=== PATIENT | female | born 1935 | race Caucasian/White ===

== ENCOUNTER 2022-08-09 22:37 | Inpatient (IN) | payer MEDICARE, OTHER ==
[~2022-08-09] VITALS: Ht 167.6 cm; Wt 75.3 kg
--- NOTE | 2022-08-09 22:50 | NUR ---
JV FOR POSSIBLE ALOC DUE TO LANGUAGE BARRIER ON SCENE PT UNABLE TO SPECIFY ANY SPECIFIC COMPLAINTS ON ASSESSMENT. CALLED MARISOL PATTON AT FOR FURTHER ELABORATION. SHE ENDORSED HER MOTHER RETURNED FROM REHAB X6 DAYS AGO AND HAS BEEN CONSTIPATED SINCE HER RETURN IN ADDITION TO C/O ABD PAIN. THEY DENY ANY NEW ONSET AMS.PT AWAKE AND ALERT X2 BREATHING EVEN AND UNLABORED. ALL V/S WNL.
[2022-08-09] MEDS ORDERED: IV NS 0.9% 1,000 ML BAG IV ONE (23:00)
[2022-08-09 23:52] LABS: BASOPHILS % (AUTO) 0.3 % (0.0-2.0); HEMATOCRIT 41 % (33-45); HEMOGLOBIN 13.1 g/dL (11.5-14.8); LYMPHOCYTES # (AUTO) 1.6 K/uL (0.8-4.8); LYMPHOCYTES % (AUTO) 10.1 % (20.0-44.0); MEAN CORPUSCULAR HGB CONC 32 g/dl (31.0-36.0); MEAN CORPUSCULAR VOLUME 89 fL (82-100); MONOCYTES # (AUTO) 0.7 K/uL (0.1-1.30); MONOCYTES % (AUTO) 4.7 % (2.0-12.0); NEUTROPHILS # (AUTO) 13.5 K/uL (1.8-8.9); NEUTROPHILS % (AUTO) 84.9 % (43.0-81.0); PLATELET COUNT (AUTO) 316 K/uL (150-450); RED BLOOD CELL COUNT(AUTO) 4.61 MIL/uL (4.0-5.2); WHITE BLOOD COUNT (AUTO) 15.9 K/uL (4.3-11.0)
[2022-08-10 00:02] LABS: CALCIUM, SERUM 8.2 mg/dL (8.5-10.1); CARBON DIOXIDE 22 mmol/L (21-32); CHLORIDE 101 mmol/L (98-107); CREATININE 0.8 mg/dL (0.6-1.3); GLUCOSE 157 mg/dL (74-106); POTASSIUM 5.3 mmol/L (3.5-5.1); SODIUM SERUM 134 mmol/L (136-145); UREA NITROGEN, BLOOD 15 mg/dL (7-18)
[2022-08-10 00:18] LABS: ALANINE AMINOTRANSFERASE 9 U/L (12-78); ALKALINE PHOSPHATASE 83 U/L (46-116); ASPARTATE AMINOTRANSFERASE 43 U/L (15-37); BILIRUBIN,DIRECT 0.5 mg/dL (0.0-0.2); BILIRUBIN,TOTAL 1.7 mg/dL (0.2-1.0); TOTAL PROTEIN, SERUM 7.5 g/dL (6.4-8.2)
[2022-08-10] MEDS ORDERED: PIPERACILLIN /TAZOBACTAM 3.375 G in IV D5W 50 ML IV ONE (00:30)
[2022-08-10] MEDS ORDERED: PIPERACILLIN /TAZOBACTAM 3.375 G VIAL IV ONE (00:40)
[2022-08-10] MEDS ORDERED: IV NS 0.9% 1,000 ML BAG IV ONE (01:00)
--- NOTE | 2022-08-10 01:11 | NUR ---
angelita collected and sent to lab
--- NOTE | 2022-08-10 01:12 | NUR ---
us at bedside
--- NOTE | 2022-08-10 01:27 | NUR ---
urine collected and sent to lab
[2022-08-10] MEDS ORDERED: ACETAMINOPHEN 325 MG TABLET PO PRN (01:30)
[2022-08-10] MEDS ORDERED: ONDANSETRON HCL/PF 4 MG/2 ML VIAL IVP PRN (01:30)
[2022-08-10] MEDS ORDERED: hydrALAZINE HCL IV 20 MG VIAL IV PRN (01:30)
--- NOTE | 2022-08-10 02:01 | NUR ---
PT REFUSING FOR LA REPEAT LAB DRAW
[2022-08-10 02:22] LABS: BILIRUBIN,URINE MODERATE (NEGATIVE); COLOR,URINE DARK YELLOW (YELLOW); LEUKOCYTE ESTERASE ,URINE NEGATIVE (NEGATIVE); NITRITE, URINE POSITIVE (NEGATIVE); PH,URINE 5.5 (5.0-8.0); PROTEIN,URINE TRACE mg/dl (NEGATIVE); UGLUCOSE 100 MG/DL mg/dL (NEGATIVE)
--- NOTE | 2022-08-10 02:46 | NUR ---
Guerrero cabezas in [facility] - 08/10/22 at 0247 by DOUGIE [id number]
[2022-08-10] MEDS ORDERED: ENOXAPARIN SODIUM 40 MG/0.4 ML DISP.SYRIN SQ SCH (03:18)
--- NOTE | 2022-08-10 03:20 | NUR ---
REPORT GIVEN TO ASHLEY TAYLOR FOR LIANNA
[2022-08-10] MEDS ORDERED: CEFEPIME 2 GM in IV D5W 100 ML IV ONE (03:30)
--- NOTE | 2022-08-10 03:31 | NUR ---
PT TRANSPORTED TO UNIT ON GURNEY WITH EMT AND RN AT BEDSIDE. NAD NOTED DURING TRANSPORTED
--- NOTE | 2022-08-10 04:00 | NUR ---
BEEF PLUCK TRIMMER NOTES: RECEIVED PATIENT AWAKE IN BED, BED FROM ER, BED IN LOW POSITION, CALL LIGHTS WITHIN REACH, NO COMPLAIN OF PAIN AND DISCOMFORT AT THIS TIME, NO FACIAL GRIMACING, PATIENT WAS PLACED COMFORTABLY IN ROOM A/OX2 WITH EPISODE OF CONFUSION, IB LINE AT LEFT HAND WITH ONGOING NSS@75ML/HR INFUSING WELL, SKIN ASSESSMENT DONE AND DOCUMENTED, INVENTORIES OF PERSONAL BELONGING DONE AND SIGNED BY ME AND SOLE CONFORMING MACHINE OPERATOR PATIENT WAS UNABLE TO SIGN, PATIENT WAS ORIENTED TO PLACE REMIND TO USE THE CALL LIGHTS WHEN NEEDED ASSISTANCE, PATIENT BED WAS PLACED IN LOW POSITION CALL LIGHTS WITHIN REACH, ALL NEEDS MET WILL CONTINUE TO MONITOR.
[2022-08-10 04:30] VITALS: BP 109/54
[2022-08-10] MEDS ORDERED: CEFEPIME 1 GM VIAL ONE ×2 (04:40→05:26)
[2022-08-10] MEDS: IV NS 0.9% 1,000 ML IV SCH ×2 (04:42→15:51)
--- NOTE | 2022-08-10 05:44 | NUR ---
RN NOTES: PATIENT WAS OBSERVED WITH STAIN OF BLOOD IN BOWEL MOVEMENT WHEN PATIENT CHANGE DURING ADMISSION NOTIFY HOSPITALIST DR EVY ALMENDAREZ PATIENT HAS AN ORDER OF LOVENOX 40MG Q24H PER HOSPITALITIST SAY TO GIVE LOVENOX NOTED AND CARRY OUT.
--- NOTE | 2022-08-10 06:13 | NUR ---
MS RN CLOSING NOTES; PATIENT SLEEP IN BED COMFORTABLY, BE DIN LOW POSITION CALL LIGHTS WITHIN REACH, NO COMPLAIN OF PAIN AND DISCOMFORT AT THIS TIME, ON ROOM AIR SATURATING WELL, PATIENT ON NPO WITH POSSIBLE HIDA SCAN, WITH IV LINE AT LEFT HAND #22 WITH ONGOING [id number] INFUSING WELL, PATIENT KEPT CLEAN AND DRY ALL NEEDS MET ENDORSE TO INCOMING SHIFT.
[2022-08-10 08:24] LABS: RBC,URINE NONE SEEN /HPF (0-2); WBC,URINE 0-2 /HPF (0-3)
[2022-08-10 08:25] LABS: BACTERIA,URINE None seen /HPF (None Seen); MUCUS,URINE Few /LPF (None Seen); SQUAMOUS EPITHELIAL CELL,UR Few /HPF (None Seen)
[2022-08-10] MEDS ORDERED: NORT25CA PO (09:10)
[2022-08-10] MEDS ORDERED: LISI2.5T2 PO (09:10)
[2022-08-10] MEDS ORDERED: DONE10TA44 PO (09:10)
[2022-08-10] MEDS ORDERED: SERT50TA12 PO (09:10)
[2022-08-10] MEDS ORDERED: ROSU5TAB13 PO (09:10)
[2022-08-10] MEDS ORDERED: ACET1TAB23 PO (09:10)
[2022-08-10] MEDS ORDERED: PREG50CA PO (09:10)
--- NOTE | 2022-08-10 10:39 | NUR ---
WOUND CARE CONSULT: PT OFF UNIT AT THIS TIME. PER NURSING REPORT, PT HAS DRY BLACK NECROTIC TISSUE TO LEFT HEEL, PRESENT ON ADMISSION. RECOMMEND DPM CONSULT. DR RIGGS CALLED. RECOMMENDATIONS MADE FOR SKIN PROTECTION. DISCUSSED WITH NURSING STAFF. WILL SEE PT PT CONDITION PERMITS. MD IN AGREEMENT WITH PLAN OF CARE.
[2022-08-10] MEDS ORDERED: Z GUARD REMEDY 4 OZ OINT TP PRN (11:00)
[2022-08-10] MEDS: CEFEPIME 2 GM in IV D5W 100 ML IV SCH (15:51)
[2022-08-10] MEDS: MORPHINE SULFATE INJ 2 MG/ML DISP.SYRIN IV PRN (17:18)
[2022-08-10] MEDS: NORTRIPTYLINE HCL 25 MG CAPSULE PO SCH (18:04)
--- NOTE | 2022-08-10 18:36 | NUR ---
RN CLOSING NOTE PATIENT RECEIVED IN BED AND ASLEEP. NO S/SX OF DISTRESS. IV ACCESS TO L-HAND IN TACT AND PATENT. NS RUNNING CONTINUOUSLY @ 75ML/HR. PATIENT ALSO RECEIVED IV ANTIBIOTICS ON SHIFT. TOLERATED BOTH WELL. PATIENT TAKEN OFF UNIT @ 0930 FOR SCHEDULED HIDA SCAN. RETURNED BACK @ 1430. PLEASE SEE NOTES FOR RESULTS. PATIENT NIECE, POOJA, NOTIFIED OF PATIENT STATUS. PATIENT RECEIVED PRN MORPHINE VIA IV @ 1718 FOR CONSTANT MOANING AND FACIAL GRIMACING DURING LAST ROUNDING AND CLEANING. MEDICATION EFFECTIVE. SAFETY MEASURES IN PLACE WITH BED LOW AND LOCKED. CALL LIGHT WITHIN REACH. WILL CONT TO MONITOR.
--- NOTE | 2022-08-10 19:54 | NUR ---
MS RN OPENING NOTE RECEIVED PATIENT ASLEEP IN BED, EASILY AWAKENED, ALERT/ORIENTED X 2, PT SPEAKS LITTLE TURKISH. PATIENT STABLE ON RA, NO S/S OF DISTRESS OR SOB NOTED, BREATHING EVEN AND UNLABORED. IV ACCESS ON LEFT HAND #22G AND LFA #22G INTACT, LEFT FOREARM INFUSING NS @ 75 ML/HR. PATIENT RESTING COMFORTABLY, NO S/S OF PAIN NOTED. SAFETY MEASURES IN PLACE, CALL LIGHT WITHIN REACH, SIDE RAILS UP X 3, BED LOCKED IN LOWEST POSITION, BED ALARM ON. WILL CONTINUE TO MONITOR PATIENT
[2022-08-10 20:00] VITALS: BP 100/50
[2022-08-10] MEDS: ATORVASTATIN 10 MG TABLET PO SCH (21:07)
[2022-08-11] MEDS: CEFEPIME 2 GM in IV D5W 100 ML IV SCH ×2 (03:01→15:41)
--- NOTE | 2022-08-11 06:18 | NUR ---
MS RN CLOSING NOTE PATIENT AWAKE IN BED, ALERT/ORIENTED X 1-2, PT LETHARGIC MOST OF SHIFT, PT UNDERSTANDS VERY LITTLE [place]ER[place] LEONEAN. PATIENT STABLE ON RA, NO S/S OF DISTRESS OR SOB NOTED, BREATHING EVEN AND UNLABORED. PATIENT NPO, PER DR. JUAREZ NOTES HIDA SCAN NEGATIVE AND MAY START DIET. ATTEMPTED SWALLOW EVAL, HOWEVER, PT LETHARGIC SO UNABLE TO START DIET, KEPT NPO. PATIENT INCONTINENT, HAD 1 BM. SAFETY MEASURES IN PLACE: CALL LIGHT WITHIN REACH, SIDE RAILS UP X 3, BED LOCKED IN LOWEST POSITION, BED ALARM ON, FLOATED HEELS AND WOUND CARE DONE ON LEFT HEEL, PT TURNED Q2H, MEPILEX PLACED ON SACRUM. WILL ENDORSE TO DAYSHIFT NURSE FOR CONTINUITY OF CARE
[2022-08-11 07:34] LABS: BASOPHILS % (AUTO) 0.5 % (0.0-2.0); EOSINOPHILS % (AUTO) 0.7 % (0.0-6.0); HEMATOCRIT 38 % (33-45); HEMOGLOBIN 12.5 g/dL (11.5-14.8); LYMPHOCYTES # (AUTO) 1.6 K/uL (0.8-4.8); LYMPHOCYTES % (AUTO) 16.1 % (20.0-44.0); MEAN CORPUSCULAR HGB CONC 33 g/dl (31.0-36.0); MEAN CORPUSCULAR VOLUME 89 fL (82-100); MONOCYTES # (AUTO) 0.6 K/uL (0.1-1.30); MONOCYTES % (AUTO) 5.7 % (2.0-12.0); NEUTROPHILS # (AUTO) 7.8 K/uL (1.8-8.9); PLATELET COUNT (AUTO) 310 K/uL (150-450); RED BLOOD CELL COUNT(AUTO) 4.32 MIL/uL (4.0-5.2); WHITE BLOOD COUNT (AUTO) 10.2 K/uL (4.3-11.0)
--- NOTE | 2022-08-11 07:40 | NUR ---
RN OPENING NOTE PATIENT AWAKE IN BED RESTING. A/O X1-2. NO S/S OF PAIN NOTED AT THIS TIME. ON ROOM AIR, NO DISTRESS OR SHORTNESS OF BREATH NOTED. IV ACCESS LFA #22G INTACT, PATENT AND FLUSHING WELL. FALL AND SAFETY MEASURES IN PLACE, BED ALARM ON, BED IN LOW AND LOCK POSITION, CALL LIGHT AND TABLE WITHIN EASY REACH, SIDE RAILS UP X2. WILL CONTINUE TO MONITOR.
[2022-08-11 08:00] VITALS: BP 113/63
[2022-08-11 08:44] LABS: ALBUMIN 1.9 g/dL (3.4-5.0); BILIRUBIN,DIRECT 0.6 mg/dL (0.0-0.2); BILIRUBIN,TOTAL 1.1 mg/dL (0.2-1.0); CALCIUM, SERUM 8.3 mg/dL (8.5-10.1); CREATININE 0.6 mg/dL (0.6-1.3); MAGNESIUM 2.2 mg/dL (1.8-2.4); PHOSPHORUS 2.2 mg/dL (2.5-4.9); TOTAL PROTEIN, SERUM 6.6 g/dL (6.4-8.2)
[2022-08-11] MEDS: MORPHINE SULFATE INJ 2 MG/ML DISP.SYRIN IV PRN (08:49)
[2022-08-11] MEDS: SERTRALINE HCL 50 MG TABLET PO SCH (09:11)
[2022-08-11] MEDS: PREGABALIN 25 MG CAPSULE PO SCH ×2 (09:11→17:48)
[2022-08-11] MEDS: LISINOPRIL (5MG) 5 MG TABLET PO SCH (09:11)
[2022-08-11] MEDS: ENOXAPARIN SODIUM 40 MG/0.4 ML DISP.SYRIN SQ SCH (09:13)
[2022-08-11] MEDS: VITAMINS A AND D 56.7 GM TUBE TP SCH (09:15)
[2022-08-11] MEDS: POTASSIUM CHLORIDE 20 MEQ POWDER PACKET PO SCH ×3 (12:04→14:22)
[2022-08-11] MEDS ORDERED: NEUTRA PHOS 1 POWD.PACKET PO ONE (14:00)
[2022-08-11 16:00] VITALS: BP 120/59
[2022-08-11] MEDS: NORTRIPTYLINE HCL 25 MG CAPSULE PO SCH (17:48)
--- NOTE | 2022-08-11 19:21 | NUR ---
RN CLOSING NOTE PATIENT AWAKE IN BED RESTING. A/O X1-2. NO S/S OF PAIN NOTED AT THIS TIME. ON ROOM AIR, NO DISTRESS OR SHORTNESS OF BREATH NOTED. NO IV ACCESS, PATIENT REMOVED IV, MULTIPLE ATTEMPTS WERE MADE. SCHEDULE MEDICATIONS ADMINISTERED. FALL AND SAFETY MEASURES IN PLACE, BED ALARM ON, BED IN LOW AND LOCK POSITION, CALL LIGHT AND TABLE WITHIN EASY REACH, SIDE RAILS UP X2. WILL ENDORSE TO RESEARCH PROFESSOR OF BIOSTATISTICS.
--- NOTE | 2022-08-11 19:40 | NUR ---
MS RN OPENING NOTE RECEIVED PATIENT AWAKE IN BED, EASILY AWAKENED, ALERT/ORIENTED X 1-2, PT SPEAKS LITTLE MOHAWK, PATIENT MORE ALERT TODAY. PATIENT STABLE ON RA, NO S/S OF DISTRESS OR SOB NOTED, BREATHING EVEN AND UNLABORED. NO IV ACCESS AT THIS TIME, MULTIPLE ATTEMPTS BY DAYSHIFT NURSE, WILL ATTEMPT IV ACCESS LATER. PATIENT RESTING COMFORTABLY, DENIES PAIN AT THIS TIME. SAFETY MEASURES IN PLACE, CALL LIGHT WITHIN REACH, SIDE RAILS UP X 3, BED LOCKED IN LOWEST POSITION, BED ALARM ON. WILL CONTINUE TO MONITOR PATIENT
[2022-08-11 20:00] VITALS: BP 91/57
[2022-08-11] MEDS: DONEPEZIL 5 MG TABLET PO SCH (22:13)
[2022-08-11] MEDS: ATORVASTATIN 10 MG TABLET PO SCH (22:13)
[2022-08-12] MEDS: CEFEPIME 2 GM in IV D5W 100 ML IV SCH ×2 (02:51→15:20)
--- NOTE | 2022-08-12 06:50 | NUR ---
MS RN CLOSING NOTE PATIENT AWAKE IN BED, ALERT/ORIENTED X 1-2, PT SPEAKS LITTLE TURKS AND [place] ISLANDER, PATIENT MORE ALERT THIS SHIFT. PATIENT STABLE ON RA, NO S/S OF DISTRESS OR SOB NOTED, BREATHING EVEN AND UNLABORED. MEDICATIONS GIVEN ORDERED, PT NEEDS MET THROUGHOUT SHIFT. IV ACCESS INSERTED ON LEFT WRIST #22G, INTACT AND SALINE LOCKED. SAFETY MEASURES IN PLACE, CALL LIGHT WITHIN REACH, SIDE RAILS UP X 3, BED LOCKED IN LOWEST POSITION, BED ALARM ON. WILL ENDORSE TO DAYSHIFT NURSE FOR CONTINUITY OF CARE
[2022-08-12 07:14] LABS: BASOPHILS # (AUTO) 0.1 K/uL (0.0-0.2); BASOPHILS % (AUTO) 0.6 % (0.0-2.0); EOSINOPHILS % (AUTO) 1.4 % (0.0-6.0); HEMATOCRIT 36 % (33-45); HEMOGLOBIN 11.7 g/dL (11.5-14.8); LYMPHOCYTES # (AUTO) 1.5 K/uL (0.8-4.8); LYMPHOCYTES % (AUTO) 14.3 % (20.0-44.0); MEAN CORPUSCULAR HGB CONC 32 g/dl (31.0-36.0); MEAN CORPUSCULAR VOLUME 89 fL (82-100); MONOCYTES # (AUTO) 0.7 K/uL (0.1-1.30); NEUTROPHILS # (AUTO) 7.9 K/uL (1.8-8.9); NEUTROPHILS % (AUTO) 76.7 % (43.0-81.0); PLATELET COUNT (AUTO) 351 K/uL (150-450); RED BLOOD CELL COUNT(AUTO) 4.06 MIL/uL (4.0-5.2); WHITE BLOOD COUNT (AUTO) 10.4 K/uL (4.3-11.0)
--- NOTE | 2022-08-12 07:27 | NUR ---
RN OPENING NOTE PATIENT AWAKE IN BED RESTING. A/O X1-2. NO S/S OF PAIN NOTED AT THIS TIME. ON ROOM AIR, NO DISTRESS OR SHORTNESS OF BREATH NOTED. IV ACCESS L WRIST #22G INTACT, PATENT AND FLUSHING WELL. FALL AND SAFETY MEASURES IN PLACE, BED ALARM ON, BED IN LOW AND LOCK POSITION, CALL LIGHT AND TABLE WITHIN EASY REACH, SIDE RAILS UP X2. WILL CONTINUE TO MONITOR.
[2022-08-12 08:21] LABS: CALCIUM, SERUM 8.4 mg/dL (8.5-10.1); CARBON DIOXIDE 21 mmol/L (21-32); CHLORIDE 101 mmol/L (98-107); CREATININE 0.5 mg/dL (0.6-1.3); GLUCOSE 93 mg/dL (74-106); MAGNESIUM 2.1 mg/dL (1.8-2.4); PHOSPHORUS 2.1 mg/dL (2.5-4.9); POTASSIUM 3.5 mmol/L (3.5-5.1); SODIUM SERUM 133 mmol/L (136-145); UREA NITROGEN, BLOOD 17 mg/dL (7-18)
[2022-08-12 08:29] VITALS: BP 99/52
[2022-08-12] MEDS: SERTRALINE HCL 50 MG TABLET PO SCH (08:35)
[2022-08-12] MEDS: PREGABALIN 25 MG CAPSULE PO SCH ×2 (08:35→17:17)
[2022-08-12] MEDS: LISINOPRIL (5MG) 5 MG TABLET PO SCH (08:35)
[2022-08-12] MEDS: ENOXAPARIN SODIUM 40 MG/0.4 ML DISP.SYRIN SQ SCH (08:36)
[2022-08-12] MEDS: VITAMINS A AND D 56.7 GM TUBE TP SCH (08:37)
[2022-08-12] MEDS ORDERED: NEUTRA PHOS 1 POWD.PACKET PO ONE (11:00)
--- NOTE | 2022-08-12 14:49 | NUR ---
RN NOTE PATIENT'S FAMILY REQUESTED FOR PATIENT TO HAVE MEDICATION FOR CONSTIPATION. DOCTOR JESUS JUAREZ WAS INFORMED AND ORDER COLACE PO 100MG DAILY, ORDER WAS PLACED.
[2022-08-12 16:39] VITALS: BP 90/44
[2022-08-12] MEDS: NORTRIPTYLINE HCL 25 MG CAPSULE PO SCH (17:18)
[2022-08-12 18:23] VITALS: BP 94/60
--- NOTE | 2022-08-12 18:35 | NUR ---
RN CLOSING NOTE PATIENT AWAKE IN BED RESTING. A/O X1-2. NO S/S OF PAIN NOTED AT THIS TIME. ON ROOM AIR, NO DISTRESS OR SHORTNESS OF BREATH NOTED. IV ACCESS L WRIST #22G INTACT, PATENT AND FLUSHING WELL. SCHEDULE MEDICATIONS ADMINISTERED. WOUND CARE IMPLEMENTED. PATIENT WAS TURNED AND REPOSITIONED PER PROTOCOL. FALL AND SAFETY MEASURES IN PLACE, BED ALARM ON, BED IN LOW AND LOCK POSITION, CALL LIGHT AND TABLE WITHIN EASY REACH, SIDE RAILS UP X2. WILL ENDORSE TO BRONZER.
--- NOTE | 2022-08-12 19:40 | NUR ---
MS RN OPENING NOTE RECEIVED PATIENT AWAKE IN BED, ALERT/ORIENTED X 2, PT SPEAKS LITTLE WELSH, PATIENT STABLE ON RA, NO S/S OF DISTRESS OR SOB NOTED, BREATHING EVEN AND UNLABORED. IV ACCESS AT L WRIST #22G INTACT, PATENT, AND FLUSHES WELL, PATIENT DENIES PAIN AT THIS TIME. SAFETY MEASURES IN PLACE, CALL LIGHT WITHIN REACH, SIDE RAILS UP X 3, BED LOCKED IN LOWEST POSITION, BED ALARM ON. WILL CONTINUE TO MONITOR THROUGHOUT THE SHIFT.
[2022-08-12 20:00] VITALS: BP 90/53
[2022-08-12] MEDS: ATORVASTATIN 10 MG TABLET PO SCH (21:11)
[2022-08-12] MEDS: DONEPEZIL 5 MG TABLET PO SCH (21:11)
[2022-08-13] MEDS: CEFEPIME 2 GM in IV D5W 100 ML IV SCH ×2 (02:17→14:40)
--- NOTE | 2022-08-13 06:24 | NUR ---
MS RN CLOSING NOTE NO SIGNIFICANT CHANGES THROUGHOUT THE SHIFT. PATIENT SLEEPING IN BED BUT EASILY AROUSABLE TO TOUCH AND VOICE, ALERT/ORIENTED X 1-2, PT SPEAKS LITTLE MONEGASQUE, PATIENT STABLE ON RA, NO S/S OF DISTRESS OR SOB NOTED, BREATHING EVEN AND UNLABORED. IV ACCESS AT L WRIST #22G INTACT AND PATENT RUNNING NS AT TKO, PATIENT DENIES PAIN AT THIS TIME. ALL DUE MEDS GIVEN, PICTURES TAKEN AND PLACED ON CHART, KEPT DRY AND CLEAN AT ALL TIMES, SAFETY MEASURES IN PLACE, CALL LIGHT WITHIN REACH, SIDE RAILS UP X 3, BED LOCKED IN LOWEST POSITION, BED ALARM ON. WILL ENDORSE TO AM SHIFT NURSE FOR CONTINUITY OF CARE.
[2022-08-13 07:14] LABS: BASOPHILS % (AUTO) 0.3 % (0.0-2.0); EOSINOPHILS % (AUTO) 0.7 % (0.0-6.0); HEMATOCRIT 36 % (33-45); HEMOGLOBIN 11.7 g/dL (11.5-14.8); LYMPHOCYTES # (AUTO) 1.6 K/uL (0.8-4.8); LYMPHOCYTES % (AUTO) 15.5 % (20.0-44.0); MEAN CORPUSCULAR HGB CONC 33 g/dl (31.0-36.0); MEAN CORPUSCULAR VOLUME 90 fL (82-100); MONOCYTES # (AUTO) 0.7 K/uL (0.1-1.30); NEUTROPHILS # (AUTO) 8.1 K/uL (1.8-8.9); NEUTROPHILS % (AUTO) 76.5 % (43.0-81.0); PLATELET COUNT (AUTO) 338 K/uL (150-450); RED BLOOD CELL COUNT(AUTO) 4.02 MIL/uL (4.0-5.2); WHITE BLOOD COUNT (AUTO) 10.6 K/uL (4.3-11.0)
[2022-08-13 07:25] LABS: CALCIUM, SERUM 7.8 mg/dL (8.5-10.1); CREATININE 0.6 mg/dL (0.6-1.3); MAGNESIUM 1.9 mg/dL (1.8-2.4); PHOSPHORUS 2.4 mg/dL (2.5-4.9); POTASSIUM 3.5 mmol/L (3.5-5.1)
--- NOTE | 2022-08-13 07:26 | NUR ---
MS RN OPENING NOTE RECEIVED PATIENT AWAKE IN BED IN NO ACUTE SIGNS OF DISTRESS. HOB ELEVATED. A/O X 2. CANADIAN SPEAKING AND SPEAKS LITTLE SINHALA, DENIES PAIN OR ANY DISCOMFORTS AT THIS TIME. ON RA, BREATHING EVEN AND UNLABORED. IV ACCESS ON L WRIST #22G INTACT, PATENT, AND FLUSHES WELL. SAFETY MEASURES IN PLACE: CALL LIGHT WITHIN REACH, SIDE RAILS UP X 3, BED LOCKED IN LOWEST POSITION, BED ALARM ON. WILL CONTINUE TO MONITOR PT ACCORDINGLY.
[2022-08-13 08:00] VITALS: BP 96/50
[2022-08-13] MEDS: DOCUSATE SODIUM 100 MG CAPSULE PO SCH (08:13)
[2022-08-13] MEDS: PREGABALIN 25 MG CAPSULE PO SCH ×2 (08:13→17:04)
[2022-08-13] MEDS: SERTRALINE HCL 50 MG TABLET PO SCH (08:13)
[2022-08-13] MEDS: ENOXAPARIN SODIUM 40 MG/0.4 ML DISP.SYRIN SQ SCH (08:13)
[2022-08-13] MEDS: LISINOPRIL (5MG) 5 MG TABLET PO SCH (08:14)
[2022-08-13] MEDS: VITAMINS A AND D 56.7 GM TUBE TP SCH (08:15)
--- NOTE | 2022-08-13 11:00 | NUR ---
RN NOTES PT REFUSED PHYSICAL EVALUATION THIS MORNING DESPITE ENCOURAGEMENT.
--- NOTE | 2022-08-13 11:15 | NUR ---
WOUND CARE CONSULT: PT SEEN FOR SKIN ASSESSMENT AND NOTED TO SACRAL INTACT DEEP TISSUE INJURY WITH SURROUNDING SCARRING, PRESENT ON ADMISSION. PT BEING FOLLOWED BY LEFT HEEL WOUND BY PODIATRY. DEFER TO DP FOR HEEL. DISCUSSED SKIN PROTECTION WITH NURSING STAFF. PT IS INCONTINENT. IN AGREEMENT WITH PLAN OF CARE. Addendum: 08/13/22 at 1117 by HELENE VALLE WNDNU Amended: Links added.
[2022-08-13] MEDS ORDERED: NEUTRA PHOS 1 POWD.PACKET PO ONE (12:00)
[2022-08-13 16:00] VITALS: BP 100/50
[2022-08-13] MEDS: NORTRIPTYLINE HCL 25 MG CAPSULE PO SCH (17:04)
[2022-08-13] MEDS: ENSURE ENLIVE 237 ML LIQUID (VANILLA) PO SCH (17:05)
[2022-08-13] MEDS ORDERED: IV NS 0.9% 500 ML BAG IV ONE (18:30)
--- NOTE | 2022-08-13 18:31 | NUR ---
RN NOTES EMT'S FROM [facility] CAME TO PICK-UP PT BUT PT'S BP WAS LOW 75/40MMHG, REPEATED SEVERAL TIMES AND SBP STILL ON THE 70'S. DR JUAREZ MADE AWARE WITH ORDER TO CANCELL D/C ORDER AND ADMINISTER NS 500ML BULOS.
--- NOTE | 2022-08-13 19:00 | NUR ---
MS RN CLOSING NOTE PATIENT IN BED ASLEEP AT THIS TIME, EASILY AWAKENS TO TACTILE AND VERBAL STIMULI. HOB ELEVATED. A/O X 2. JORDANIAN SPEAKING AND SPEAKS LITTLE KINYARWANDA.ON RA, BREATHING EVEN AND UNLABORED. IV ACCESS ON L WRIST #22G INTACT, PATENT, AND FLUSHES WELL. SAFETY MEASURES IN PLACE: CALL LIGHT WITHIN REACH, SIDE RAILS UP X 3, BED LOCKED IN LOWEST POSITION, BED ALARM ON. LATEST BP WAS 96/39 MMHG. ENDORSED TO SUPERVISOR PHOTOCOMPOSITION ASHLEY ROBERTS.
--- NOTE | 2022-08-13 19:20 | NUR ---
MS RN OPENING NOTE RECEIVED PATIENT RESTING IN BED, NO S/S OF ACUTE DISTRESS SEEN. PT A/O X 2, FRISIAN SPEAKING. NO PAIN OR ANY DISCOMFORT NOTED AT THIS TIME. ON ROOM AIR, WITH RESPIRATION EVEN AND UNLABORED. IV ACCESS ON LEFT WRIST #22G INTACT, PATENT. SAFETY MEASURES IN PLACE: CALL LIGHT WITHIN REACH, SIDE RAILS UP X 3, BED LOCKED IN LOWEST POSITION, BED ALARM ON. WILL CONTINUE TO MONITOR PATIENT.
[2022-08-13 20:35] VITALS: BP 90/45
--- NOTE | 2022-08-13 20:39 | NUR ---
MS RN NOTE PER AM SHIFT, D/C CANCELLED D/T LOW BP. 500 CC BOLUS GIVEN PRIOR TO CHANGE OF SHIFT. CURRENT BP 90/45. CHARGE NURSE AND MD MADE AWARE; AWAITING MD ORDERS;
--- NOTE | 2022-08-13 20:44 | NUR ---
MS RN NOTE PER MD, 75CC/HR OF NS; ORDERS RECEIVED AND CARRIED OUT;
[2022-08-13] MEDS ORDERED: IV NS 0.9% 1,000 ML IV ONE (21:00)
[2022-08-13] MEDS: DONEPEZIL 5 MG TABLET PO SCH (21:24)
[2022-08-13] MEDS: ATORVASTATIN 10 MG TABLET PO SCH (21:24)
--- NOTE | 2022-08-13 21:38 | NUR ---
MS RN NOTE PATIENT IS CONFUSED, PULLED OUT IV SITE; L WRIST #22G, IV TIP INTACT; CHARGE NURSE AWARE; MADE AWARE; PER ZACK GORDON FOR ACUTE MEDICAL RESTRAINTS, CHARGE NURSE INFORMED; ORDERS RECEIVED AND CARRIED OUT
[2022-08-14] VITALS (19 sets, daily range): BP systolic 74–167; BP diastolic 28–87
[2022-08-14] MEDS: CEFEPIME 2 GM in IV D5W 100 ML IV SCH ×2 (03:25→15:38)
--- NOTE | 2022-08-14 06:48 | NUR ---
MS RN CLOSING NOTE PATIENT IN BED ASLEEP AT THIS TIME, EASILY AWAKENS TO TACTILE AND VERBAL STIMULI. HOB ELEVATED. A/O X 2. SOUTH AFRICAN SPEAKING MOSTLY. ON RA. BREATHING EVEN AND UNLABORED. IV ACCESS TO RIGHT WRIST #20 G INTACT, PATENT, AND FLUSHES WELL. MEDS ADMINISTERED IN TIMELY MANNER. SAFETY MEASURES IN PLACE: CALL LIGHT WITHIN REACH, SIDE RAILS UP X 3, BED LOCKED IN LOWEST POSITION, BED ALARM ON. WILL ENDORSE PATIENT'S CARE TO HEALTH CARE SANITARY TECHNICIAN NURSE.
--- NOTE | 2022-08-14 07:30 | NUR ---
RN MS NOTES PT IN BED, AWAKE, ALERT AND VERBALLY RESPONSIVE, LOOKS WEAK, NO COMPLAINT OF PAIN, NOT IN DISTRESS, IV FLUIDS INFUSING WELL,KEPT COMFORTABLE.
[2022-08-14] MEDS: DOCUSATE SODIUM 100 MG CAPSULE PO SCH (09:00)
[2022-08-14] MEDS: LISINOPRIL (5MG) 5 MG TABLET PO SCH (09:00)
[2022-08-14] MEDS ORDERED: IV NS 0.9% 500 ML BAG IV ONE (10:00)
[2022-08-14] MEDS ORDERED: NEUTRA PHOS 1 POWD.PACKET PO ONE (10:00)
[2022-08-14] MEDS: SERTRALINE HCL 50 MG TABLET PO SCH (10:08)
[2022-08-14] MEDS: PREGABALIN 25 MG CAPSULE PO SCH ×2 (10:08→17:21)
[2022-08-14] MEDS: ENSURE ENLIVE 237 ML LIQUID (VANILLA) PO SCH ×2 (10:15→16:44)
[2022-08-14] MEDS: ENOXAPARIN SODIUM 40 MG/0.4 ML DISP.SYRIN SQ SCH (10:22)
[2022-08-14] MEDS ORDERED: IV NS 0.9% 1,000 ML IV ONE ×2 (12:00→16:00)
[2022-08-14 12:22] LABS: BILIRUBIN,URINE SMALL (NEGATIVE); COLOR,URINE AMBER (YELLOW); LEUKOCYTE ESTERASE ,URINE NEGATIVE (NEGATIVE); NITRITE, URINE NEGATIVE (NEGATIVE); PROTEIN,URINE TRACE mg/dl (NEGATIVE); UGLUCOSE NEGATIVE (NEGATIVE)
[2022-08-14 13:10] LABS: BACTERIA,URINE Few /HPF (None Seen); RBC,URINE 0-2 /HPF (0-2); SQUAMOUS EPITHELIAL CELL,UR Few /HPF (None Seen); WBC,URINE 0-2 /HPF (0-3)
[2022-08-14] MEDS: VITAMINS A AND D 56.7 GM TUBE TP SCH (13:48)
[2022-08-14 15:02] LABS: BASOPHILS % (AUTO) 0.4 % (0.0-2.0); HEMATOCRIT 34 % (33-45); HEMOGLOBIN 10.8 g/dL (11.5-14.8); LYMPHOCYTES # (AUTO) 1.6 K/uL (0.8-4.8); LYMPHOCYTES % (AUTO) 15.4 % (20.0-44.0); MEAN CORPUSCULAR HGB CONC 32 g/dl (31.0-36.0); MEAN CORPUSCULAR VOLUME 90 fL (82-100); MONOCYTES # (AUTO) 0.6 K/uL (0.1-1.30); MONOCYTES % (AUTO) 5.7 % (2.0-12.0); NEUTROPHILS # (AUTO) 8.2 K/uL (1.8-8.9); NEUTROPHILS % (AUTO) 77.5 % (43.0-81.0); PLATELET COUNT (AUTO) 200 K/uL (150-450); RED BLOOD CELL COUNT(AUTO) 3.75 MIL/uL (4.0-5.2); WHITE BLOOD COUNT (AUTO) 10.6 K/uL (4.3-11.0)
[2022-08-14 16:09] LABS: ALANINE AMINOTRANSFERASE 11 U/L (12-78); ALKALINE PHOSPHATASE 114 U/L (46-116); ASPARTATE AMINOTRANSFERASE 25 U/L (15-37); BILIRUBIN,DIRECT 0.7 mg/dL (0.0-0.2); CALCIUM, SERUM 7.7 mg/dL (8.5-10.1); CARBON DIOXIDE 20 mmol/L (21-32); CHLORIDE 102 mmol/L (98-107); CREATININE 0.5 mg/dL (0.6-1.3); GLUCOSE 87 mg/dL (74-106); POTASSIUM 3.7 mmol/L (3.5-5.1); SODIUM SERUM 133 mmol/L (136-145); TOTAL PROTEIN, SERUM 5.6 g/dL (6.4-8.2); UREA NITROGEN, BLOOD 20 mg/dL (7-18)
--- NOTE | 2022-08-14 16:13 | NUR ---
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 home with caregiver and home health
[2022-08-14 16:14] LABS: ALBUMIN 1.4 g/dL (3.4-5.0)
--- NOTE | 2022-08-14 16:39 | NUR ---
VP BUSINESS DEVELOPMENT NOTES PT SEEN AND EXAMINED BY DR. LEE, AWAITING ORDERS.
[2022-08-14] MEDS ORDERED: MIDODRINE HCL (5MG) 5 MG TABLET PO PRN (17:00)
[2022-08-14] MEDS ORDERED: ALBUMIN 25% 12.5 GM/50 ML BOTTLE IV ONE (17:00)
[2022-08-14] MEDS: NORTRIPTYLINE HCL 25 MG CAPSULE PO SCH (17:22)
[2022-08-14] MEDS: IV NS 0.9% 1,000 ML IV PRN (17:26)
[2022-08-14] MEDS ORDERED: ALBUMIN 25% 25 GM in PREMIX 1 EA IV ONE (17:30)
--- NOTE | 2022-08-14 19:00 | NUR ---
TAR WORKER NOTES PT IN BED, RESTING, NO COMPLAINT OF PAIN, NOT IN DISTRESS, ALERT AND VERBALLY RESPONSIVE, WITH ONGOING IV BOLUS, COMPLETED ALBUMIN INFUSION ORDERED, LATEST BP 91/55, WITH HR OF 100, REMAIN SR ON THE MONITOR, PM CARE PROVIDED, F/C DRAINING WELL WITH TEA COLORED URINE, NO HEMATURIA NOTED, KEPT RIM TECHNICIAN BED.
[2022-08-14] MEDS: ATORVASTATIN 10 MG TABLET PO SCH (22:20)
--- NOTE | 2022-08-14 23:16 | NUR ---
AUTOMOTIVE COLLISION ESTIMATOR OPENING NOTE RECEIVED PATIENT RESTING IN BED, NO S/S OF ACUTE DISTRESS SEEN. PT A/O X 2. NO PAIN OR ANY DISCOMFORT NOTED AT THIS TIME. ON ROOM AIR, WITH RESPIRATION EVEN AND UNLABORED. IV ACCESSES ON LEFT HAND, AND LEFT FA #20G INTACT, PATENT. PT ON TELE MONITOR SINUS RHYTHM WITH PVC, AND SINUS TACHY HR: 125. SAFETY MEASURES IN PLACE: CALL LIGHT WITHIN REACH, SIDE RAILS UP X 3, BED LOCKED IN LOWEST POSITION, BED ALARM ON. WILL CONTINUE TO MONITOR PATIENT. Addendum: 08/14/22 at 2334 by EVY HARRELL RN WRONG TIME ENTERED. CORRECT TIME IS 1939.
[2022-08-15] VITALS (15 sets, daily range): BP systolic 87–116; BP diastolic 36–78
--- NOTE | 2022-08-15 00:38 | NUR ---
MS RAMIREZ NOTES PATIENT BP 87/43, PATIENT HAS MIDODRINE TID/PRN <90 SYSTOLIC. MIDODRINE ADMINISTERED PER ORDER; CHARGE NURSE MADE AWARE; WILL RE-ASSESS BP; PATIENT ALSO RECEIVING 100CC/HR OF NORMAL SALINE FOR FLUID HYDRATION; WILL CONT PLAN OF CARE Addendum: 08/15/22 at 0203 by SPIKE SAMPSON RN PATIENT IS TELEMETRY MONITORING
--- NOTE | 2022-08-15 02:01 | NUR ---
JAVA TECHNICAL ARCHITECT NOTE CURRENT BP: 73/40 HR: 94; CHARGE NURSE AND MD MADE AWARE; PER MD, INCREASE MIDODRINE TO 10MG PO Q8HRS PRN; ORDERS RECEIVED AND CARRIED OUT;
[2022-08-15] MEDS: CEFEPIME 2 GM in IV D5W 100 ML IV SCH ×2 (02:11→14:59)
[2022-08-15] MEDS: MIDODRINE HCL (5MG) 5 MG TABLET PO PRN ×2 (02:16→13:26)
--- NOTE | 2022-08-15 02:35 | NUR ---
CUT OFF SAW TENDER METAL NOTE 10MG MIDODRINE PO ADMINISTERED PER MD ORDER; PATIENT PLACED IN [place] POSITION; CHARGE NURSE AWARE; WILL CONT PLAN OF CARE; WILL RE-ASSESS BLOOD PRESSURE
--- NOTE | 2022-08-15 03:24 | NUR ---
POINT OF CARE TECHNICIAN NOTE UPDATED MD REGARDING PATIENT BLOOD PRESSURE, PER MD ORDER ALBUMIN 25% 25GM X2 AND BOLUS 1L NS AFTER ADMINISTRATION OF ALBUMIN ORDER; CMP SCHEDULED FOR AM. CHARGE NURSE AWARE; FAXED ORDER TO NURSING SURGICAL INSTRUMENTS INSPECTOR, AWAITING FOR PHARMACY TO VERIFY MEDICATION;
[2022-08-15] MEDS ORDERED: ALBUMIN 25% 25 GM in PREMIX 1 EA IV ONE (03:30)
[2022-08-15] MEDS ORDERED: ALBUMIN 25% 100 ML IV ONE (03:47)
[2022-08-15] MEDS ORDERED: IV NS 0.9% 1,000 ML IV ONE (06:00)
--- NOTE | 2022-08-15 06:17 | NUR ---
SALES REP NOTE PATIENT BP 88/47 AFTER 2 DOSES OF ALBUMIN AND 1L NS BOLUS; MD MADE AWARE; CHARGE AWARE; AWAITING MD ORDERS
[2022-08-15 06:23] LABS: BASOPHILS % (AUTO) 0.4 % (0.0-2.0); EOSINOPHILS % (AUTO) 1.9 % (0.0-6.0); HEMATOCRIT 29 % (33-45); HEMOGLOBIN 9.3 g/dL (11.5-14.8); LYMPHOCYTES # (AUTO) 1.3 K/uL (0.8-4.8); LYMPHOCYTES % (AUTO) 20.2 % (20.0-44.0); MEAN CORPUSCULAR HGB CONC 32 g/dl (31.0-36.0); MEAN CORPUSCULAR VOLUME 91 fL (82-100); MONOCYTES # (AUTO) 0.7 K/uL (0.1-1.30); MONOCYTES % (AUTO) 10.7 % (2.0-12.0); NEUTROPHILS # (AUTO) 4.2 K/uL (1.8-8.9); NEUTROPHILS % (AUTO) 66.8 % (43.0-81.0); PLATELET COUNT (AUTO) 278 K/uL (150-450); RED BLOOD CELL COUNT(AUTO) 3.17 MIL/uL (4.0-5.2); WHITE BLOOD COUNT (AUTO) 6.2 K/uL (4.3-11.0)
--- NOTE | 2022-08-15 06:44 | NUR ---
CUSTOMER SERVICE ENGINEER NOTE PER MD, TRANSFER TO ICU, CHARGE NURSE AND MORGUE LIBRARIAN AWARE;
--- NOTE | 2022-08-15 07:00 | NUR ---
STAMP PAD MAKER NOTE PATIENT TRANSFERRED TO ICU ROOM 254 PER ACLS PROTOCOL; REPORT GIVEN TO DOUG RN AND MARTHA RN FOR LIANNA
[2022-08-15 07:11] LABS: CALCIUM, SERUM 7.4 mg/dL (8.5-10.1); CARBON DIOXIDE 21 mmol/L (21-32); CHLORIDE 107 mmol/L (98-107); CREATININE 0.5 mg/dL (0.6-1.3); GLUCOSE 105 mg/dL (74-106); MAGNESIUM 1.6 mg/dL (1.8-2.4); SODIUM SERUM 136 mmol/L (136-145); UREA NITROGEN, BLOOD 13 mg/dL (7-18)
--- NOTE | 2022-08-15 07:44 | NUR ---
WOUND CARE CONSULT: PT SEEN FOR RE-EVALUATION OF SACRAL DEEP TISSUE INJURY WHICH IS NOW IN EVOLUTION AND WAS NOTED TO BE PRESENT ON ADMISSION. PT CONTINUES TO HAVE LEFT HEEL ESCHAR, PRESENT ON ADMISSION. PT FOLLOWED BY DR RIGGS. FIRST STEP LOW AIRSS MATTRESS IS ON ORDER, DISCUSSED SKIN PROTECTION AND WOUND CARE RECOMMENDATIONS WITH NURSING STAFF. DR MCMULLEN CALLED FOR SURGICAL CONSULT. MD IN AGREEMENT WITH PLAN OF CARE. Addendum: 08/15/22 at 0747 by HELENE VALLE WNDNU Amended: Links added.
[2022-08-15] MEDS: DOCUSATE SODIUM 100 MG CAPSULE PO SCH (08:14)
[2022-08-15] MEDS: PREGABALIN 25 MG CAPSULE PO SCH ×2 (08:14→16:05)
[2022-08-15] MEDS: SERTRALINE HCL 50 MG TABLET PO SCH (08:14)
[2022-08-15] MEDS: LISINOPRIL (5MG) 5 MG TABLET PO SCH (08:14)
[2022-08-15] MEDS: VITAMINS A AND D 56.7 GM TUBE TP SCH (08:15)
[2022-08-15] MEDS: ENSURE ENLIVE 237 ML LIQUID (VANILLA) PO SCH ×2 (08:15→16:05)
[2022-08-15] MEDS: ENOXAPARIN SODIUM 40 MG/0.4 ML DISP.SYRIN SQ SCH (08:23)
[2022-08-15] MEDS: IV NS 0.9% 1,000 ML IV PRN ×2 (08:54→22:21)
[2022-08-15] MEDS: POTASSIUM CHLORIDE 20 MEQ POWDER PACKET PO SCH ×3 (10:47→12:32)
[2022-08-15] MEDS: Magnesium 1GM/D5W 100ML PREMIX 100 ML IV SCH ×2 (10:47→12:06)
--- NOTE | 2022-08-15 12:27 | NUR ---
TRANSFER TO AUTO PARTS PROFESSIONAL NOTES PT TRANSFERRED TO ICU FOR LOW BP. UPON ARRIVAL, BP STABLE. ALL VITALS TAKEN SO FAR STABLE AND WNL. PT IS A/O X 1-2 NIGERIAN SPEAKING, UNDERSTANDS SOME BRUNEIAN. PT IS ON RA SATING AT 100%, IV ACCESS NOTED ON LFA 20G, AND LH 20G. IV NS RUNNING AT 100ML/HR. NO PRESSERS STARTED.
[2022-08-15] MEDS ORDERED: NEUTRA PHOS 1 POWD.PACKET PO ONE (12:30)
--- NOTE | 2022-08-15 12:30 | NUR ---
LATEST ORTHOSTATIC BP IS 107/50 Addendum: 08/15/22 at 1352 by MARTHA CASTANEDA RN high fowlers 107/50, supine 107/45 and upright modified 98/40
--- NOTE | 2022-08-15 13:52 | NUR ---
administering 500ml bolus of NS per MD.
--- NOTE | 2022-08-15 16:42 | NUR ---
current bp orthostatic bp's: high fowlers 104/62, supine 104/45, modified upright (S) 104/51
[2022-08-15] MEDS ORDERED: MIDODRINE HCL (5MG) 5 MG TABLET PO SCH (17:00)
[2022-08-15] MEDS: NORTRIPTYLINE HCL 25 MG CAPSULE PO SCH (17:12)
--- NOTE | 2022-08-15 17:20 | NUR ---
Pt stable, latest bp, 100/67 (MAP= 77) ready to transfer to room 310. Report given to Lynne RAMIREZ.
--- NOTE | 2022-08-15 18:00 | NUR ---
transfer notes pt transferred safely and in stable condition to room 310. report given to Lynne RAMIREZ. all meds, charts, and personal belongings sent with pt accordingly.
--- NOTE | 2022-08-15 18:40 | NUR ---
DIE TRIPPER NOTE PATIENT TRANSFERRED FROM ICU DOWNGRADED TO TELE, ARRIVED IN THE UNIT @1800. PATIENT TRANSPORTED VIA BED, ACCOMPANIED BY MARTHA RAMIREZ FROM ICU. PATIENT IS AWAKE, A/O X2, VERBALLY RESPONSIVE, NO SIGNS OF ACUTE DISTRESS NOTED. STABLE ON ROOM AIR, NO SOB NOTED, BREATHING EVEN AND UNLABORED. NOTED WITH IV ACCESS ON LEFT UPPER ARM MIDLINE #18G, INTACT AND PATENT WITH NS @10 ML/HR INFUSING WELL. ALSO NOTED WITH LEFT HAND AND LEFT FORE ARM #20G, INTACT AND PATENT, SALINE LOCKED. PLACED PATIENT ON TELE MONITOR WITH CURRENT READING SHOWING SINUS RHYTHM, HR @ 80. VITAL SIGNS TAKEN FOLLOWS: 98.6, 80, 20, 119/44, SPO2 100% ON ROOM AIR. NO S/SX OF PAIN AT THIS TIME. NOTE WITH EDEMA ON BUE. ALSO WITH BILATERAL SOFT WRIST RESTRAINTS. RESTRAINTS RELEASED AT THIS TIME. PATIENT CALM AND COOPERATIVE. NO EPISODE OF TRYING TO PULL OUT IV LINES. KEPT PATIENT COMFORTABLE, SAFETY MEASURE IN PLACE. BED IN LOWEST AND LOCKED POSITION, SIDE RAILS UP X4, CALL LIGHT PLACED WITHIN EASY REACH. WILL ENDORSE TO NEXT SHIFT FOR CONTINUITY OF CARE.
--- NOTE | 2022-08-15 19:48 | NUR ---
CONTINUITY OF CARE Patient in bed, awake, calm. Arash wrist restraints off, CSM intact on BUE. Sitter at bedside. Patient had BM, incontinent care rendered. Turned and repositioned, offloading. Will cont to monitor.
[2022-08-15] MEDS: MIDODRINE HCL (5MG) 5 MG TABLET PO SCH (22:16)
[2022-08-15] MEDS: ATORVASTATIN 10 MG TABLET PO SCH (22:17)
--- NOTE | 2022-08-15 22:39 | NUR ---
OFF RESTRAINTS Patient in bed, calm. Observed no episode of pulling IV lines. Arash soft wrist restraints discontinued. Sitter at bedside.
[2022-08-16] MEDS: CEFEPIME 2 GM in IV D5W 100 ML IV SCH ×2 (03:11→15:13)
[2022-08-16 04:11] VITALS: BP 95/41
[2022-08-16] MEDS: MIDODRINE HCL (5MG) 5 MG TABLET PO SCH ×3 (05:29→21:40)
--- NOTE | 2022-08-16 06:10 | NUR ---
END OF SHIFT REPORT Patient in bed, awake. Alert to self only. No acute distress during the shift, stable on room air. Sinus Rhythm in the Tele monitor, HR 87. CRIS midline intact with good blood return. IVF infusing. On IV abx. Afebrile throughout shift. Dressing changed to sacral and left heel wound, no c/o pain, offloading. Echeverria catheter with good urine output 450ml. BP in low 90's. On Midodrine. Had BM during the shift. Turned and repositioned. No episode of agitation. Sitter at bedside. Fall precaution maintained. Will endorse to oncoming RN.
[2022-08-16 06:29] LABS: BASOPHILS % (AUTO) 0.6 % (0.0-2.0); EOSINOPHILS % (AUTO) 1.8 % (0.0-6.0); HEMATOCRIT 31 % (33-45); HEMOGLOBIN 10.1 g/dL (11.5-14.8); LYMPHOCYTES % (AUTO) 20.2 % (20.0-44.0); MEAN CORPUSCULAR HGB CONC 33 g/dl (31.0-36.0); MEAN CORPUSCULAR VOLUME 89 fL (82-100); MONOCYTES # (AUTO) 0.5 K/uL (0.1-1.30); MONOCYTES % (AUTO) 9.8 % (2.0-12.0); NEUTROPHILS # (AUTO) 3.3 K/uL (1.8-8.9); NEUTROPHILS % (AUTO) 67.6 % (43.0-81.0); PLATELET COUNT (AUTO) 306 K/uL (150-450); RED BLOOD CELL COUNT(AUTO) 3.48 MIL/uL (4.0-5.2); WHITE BLOOD COUNT (AUTO) 4.9 K/uL (4.3-11.0)
[2022-08-16 07:29] LABS: CALCIUM, SERUM 7.1 mg/dL (8.5-10.1); CARBON DIOXIDE 22 mmol/L (21-32); CHLORIDE 108 mmol/L (98-107); CREATININE 0.5 mg/dL (0.6-1.3); GLUCOSE 90 mg/dL (74-106); MAGNESIUM 1.7 mg/dL (1.8-2.4); PHOSPHORUS 1.5 mg/dL (2.5-4.9); POTASSIUM 3.7 mmol/L (3.5-5.1); SODIUM SERUM 137 mmol/L (136-145); UREA NITROGEN, BLOOD 8 mg/dL (7-18)
--- NOTE | 2022-08-16 07:35 | NUR ---
ms rn received on bed, awake,confuse at times, on one on one sitter for safety and comfort, blood pressure remains on lower side,md aware, asymptomatic, denies pain at this time, will monitor patient.
[2022-08-16 08:00] VITALS: BP 88/44
[2022-08-16] MEDS: DOCUSATE SODIUM 100 MG CAPSULE PO SCH (08:44)
[2022-08-16] MEDS: PREGABALIN 25 MG CAPSULE PO SCH ×2 (08:44→18:20)
[2022-08-16] MEDS: LISINOPRIL (5MG) 5 MG TABLET PO SCH (08:44)
[2022-08-16] MEDS: SERTRALINE HCL 50 MG TABLET PO SCH (08:46)
[2022-08-16] MEDS: ENOXAPARIN SODIUM 40 MG/0.4 ML DISP.SYRIN SQ SCH (08:46)
[2022-08-16] MEDS: ENSURE ENLIVE 237 ML LIQUID (VANILLA) PO SCH ×2 (09:00→17:00)
--- NOTE | 2022-08-16 11:00 | NUR ---
ms rn was seen by toño sesay with orders made and carried out.
[2022-08-16 12:00] VITALS: BP 95/41
[2022-08-16] MEDS ORDERED: NEUTRA PHOS 1 POWD.PACKET PO ONE (13:00)
[2022-08-16] MEDS: Magnesium 1GM/D5W 100ML PREMIX 100 ML IV SCH ×2 (13:40→15:16)
[2022-08-16 18:11] VITALS: BP 122/41
[2022-08-16] MEDS: NORTRIPTYLINE HCL 25 MG CAPSULE PO SCH (18:20)
[2022-08-16] MEDS: VITAMINS A AND D 56.7 GM TUBE TP SCH (18:22)
--- NOTE | 2022-08-16 18:39 | NUR ---
ms rn on bed, no distress noted all needs attended.
--- NOTE | 2022-08-16 19:35 | NUR ---
RN OPENING NOTES; RECEIVED PT IN BED SLEEPING BUT EASY TO AROUSED,CONFUSED,TIEN WELL ON RM AIR NO SIGN SOB/DISTRESS NOTED,NO SIGN OF PAIN/DISCOMFORT AT THIS TIME,IV ACCESS CRIS MIDLINE PATENT AND INTACT,SAFETY MEASURE INPLACE,CALL LIGHT WITHIN REACH,WILL CONTINUE TO MONITOR.
[2022-08-16 20:00] VITALS: BP 104/50
[2022-08-16] MEDS: ATORVASTATIN 10 MG TABLET PO SCH (21:39)
[2022-08-17] VITALS (8 sets, daily range): BP systolic 97–125; BP diastolic 50–64
[2022-08-17] MEDS: CEFEPIME 2 GM in IV D5W 100 ML IV SCH ×2 (03:05→15:00)
[2022-08-17] MEDS: MIDODRINE HCL (5MG) 5 MG TABLET PO SCH ×5 (04:45→21:10)
--- NOTE | 2022-08-17 06:09 | NUR ---
RN CLOSING NOTES; PT IN BED SLEEPING BUT EASY TO AROUSED,CONFUSED,TIEN WELL ON RM AIR NO SIGN SOB/DISTRESS NOTED,NO SIGN OF PAIN/DISCOMFORT AT THIS TIME,DUE MEDS GIVEN ORDER,PT WAS MOVE TO RM 311-1 DUE TO ROOMATE WAS YELLING,SCREAMING MOST OF THE TIME,ALL NEEDS ATTENDED,IV ACCESS RFA 22G PATENT AND INTACT,SAFETY MEASURE INPLACE,CALL LIGHT WITHIN REACH,WILL ENDORSED TO NEXT SHIFT.
[2022-08-17 06:45] LABS: BASOPHILS % (AUTO) 0.6 % (0.0-2.0); EOSINOPHILS % (AUTO) 0.8 % (0.0-6.0); HEMATOCRIT 33 % (33-45); HEMOGLOBIN 10.9 g/dL (11.5-14.8); LYMPHOCYTES # (AUTO) 1.5 K/uL (0.8-4.8); LYMPHOCYTES % (AUTO) 22.5 % (20.0-44.0); MEAN CORPUSCULAR HGB CONC 33 g/dl (31.0-36.0); MEAN CORPUSCULAR VOLUME 88 fL (82-100); MONOCYTES # (AUTO) 0.6 K/uL (0.1-1.30); MONOCYTES % (AUTO) 8.7 % (2.0-12.0); NEUTROPHILS # (AUTO) 4.6 K/uL (1.8-8.9); NEUTROPHILS % (AUTO) 67.4 % (43.0-81.0); PLATELET COUNT (AUTO) 330 K/uL (150-450); RED BLOOD CELL COUNT(AUTO) 3.73 MIL/uL (4.0-5.2); WHITE BLOOD COUNT (AUTO) 6.8 K/uL (4.3-11.0)
[2022-08-17 07:11] LABS: CALCIUM, SERUM 7.4 mg/dL (8.5-10.1); CARBON DIOXIDE 21 mmol/L (21-32); CHLORIDE 104 mmol/L (98-107); CREATININE 0.4 mg/dL (0.6-1.3); GLUCOSE 79 mg/dL (74-106); MAGNESIUM 2.1 mg/dL (1.8-2.4); PHOSPHORUS 1.5 mg/dL (2.5-4.9); POTASSIUM 3.4 mmol/L (3.5-5.1); SODIUM SERUM 134 mmol/L (136-145); UREA NITROGEN, BLOOD 6 mg/dL (7-18)
--- NOTE | 2022-08-17 07:30 | NUR ---
SAP INTEGRATION ARCHITECT NOTES PT IN BED, AWAKE, ALERT TO SELF, VERBALLY RESPONSIVE, NOT IN DISTRESS, CALL LIGHT WITHIN REACH, KEPT WARM AND COMFORTABLE IN BED.
[2022-08-17] MEDS: DOCUSATE SODIUM 100 MG CAPSULE PO SCH (09:58)
[2022-08-17] MEDS: PREGABALIN 25 MG CAPSULE PO SCH ×2 (09:58→17:00)
[2022-08-17] MEDS: SERTRALINE HCL 50 MG TABLET PO SCH (09:58)
[2022-08-17] MEDS: ENSURE ENLIVE 237 ML LIQUID (VANILLA) PO SCH ×2 (09:59→17:00)
[2022-08-17] MEDS ORDERED: NEUTRA PHOS 1 POWD.PACKET PO ONE (10:00)
[2022-08-17] MEDS: ENOXAPARIN SODIUM 40 MG/0.4 ML DISP.SYRIN SQ SCH (10:00)
[2022-08-17] MEDS ORDERED: POTASSIUM CHLORIDE 20 MEQ POWDER PACKET PO SCH (10:00)
[2022-08-17] MEDS: VITAMINS A AND D 56.7 GM TUBE TP SCH (10:01)
--- NOTE | 2022-08-17 11:08 | NUR ---
LANG INTERPRETER NOTES PT SEEN AND EXAMINED BY DR. MERINO, PT REFUSED TO TAKE HER MORNING MEDS, INFORMED, DISCHARGE PLANNING TODAY.
[2022-08-17] MEDS: FLUDROCORTISONE 0.1 MG TABLET PO SCH ×3 (12:00→14:31)
[2022-08-17] MEDS ORDERED: MIDO5TAB4 PO (13:13)
[2022-08-17] MEDS ORDERED: FLUD0.1T3 PO (13:13)
--- NOTE | 2022-08-17 16:13 | NUR ---
ALL AROUND PRESSER NOTES PT REFUSED TO RESTART IV, IV ATB NOT GIVEN, INFORMED OF PT'S MED REFUSALS.
[2022-08-17] MEDS: NORTRIPTYLINE HCL 25 MG CAPSULE PO SCH (17:42)
--- NOTE | 2022-08-17 18:30 | NUR ---
BUILDING APPRAISER NOTES PT IN BED, RESTING, AWAKE, ALERT TO SELF, WITH CONFUSION, NO SIGN OF PAIN, NOT IN DISTRESS, CALL LIGHT WITHIN REACH, F/C IN PLACE, DRAINING WELL WITH CLEAR, YELLOW URINE, PM CARE PROVIDED, NIURKA POOJA REQUESTED TO HOLD DISCHARGE BECAUSE THEY DO NOT HAVE A CAREGIVER AVAILABLE TODAY, DR. MERINO AND CUTTER OPERATOR ASBESTOS SHINGLE AWARE, ALL NEEDS ATTENDED.
--- NOTE | 2022-08-17 19:10 | NUR ---
RN NOTES: RECEIVED ASLEEP ON BED, ON TELE MONITOR SR RATE-93, BORDERLINE IST DEGREE, LOOKS CONFUSED, ORIENTED TO UNIT AND STAFF WHEN SHE WAS AWAKEN, ON DOWNS CATH DRAINING INTO YELLOWISH COLORED URINE AT 100CC LEVEL, ORIENTED TO UNIT AND STAFF, ASPIRATION PRECAUTION, FALL AND SAFETY PRECAUTION OBSERVED.KEPT CALL LIGHT WITHIN EASY REACH.
[2022-08-17] MEDS: ATORVASTATIN 10 MG TABLET PO SCH ×2 (21:11→21:19)
--- NOTE | 2022-08-17 21:17 | NUR ---
RN NOTES: WHEN RN WAS ABOUT TO GIVE MEDICATION AND WAKE HER UP, SHE STRONGLY REFUSED FOR HER ORAL MEDS, SHE SAID "NO.NO NO", SHE IS PUSHING THE RN HAND AWAY AND SHE COVER HER MOUTH AND FACE, SHE SAID "GO, GO", RN EXPLAINED IT TO HER THE RISK AND BENIFITS OF MEDICATION, SHE IS NOT LISTENING.SHE SAID"GO". Addendum: 08/17/22 at 2238 by SKIP TORIBIO RN ADDED NOTES: MEDICATION RETURNED BACK TO OMNICE.
[2022-08-18] VITALS: BP 103/62
[2022-08-18] MEDS: CEFEPIME 2 GM in IV D5W 100 ML IV SCH (03:00)
--- NOTE | 2022-08-18 03:10 | NUR ---
RN NOTES: -UPON ENDORSEMENT THIS AFTERNOON, NO IV CANNULA, REFUSED FOR REINSERTION, PMD IS AWARE. -SHE ALSO REFUSED FOR ORAL MEDICATION.
[2022-08-18 04:00] VITALS: BP 112/62
[2022-08-18] MEDS: MIDODRINE HCL (5MG) 5 MG TABLET PO SCH (05:05)
--- NOTE | 2022-08-18 06:53 | NUR ---
RN NOTES: MORNING CARE RENDERED, BRIEF CHANGE, DRESSING CHANGE, SHE AGREE TO TAKE HER MEDICATION IN THE MORNING, REFUSED TO REINSERT IV CANNULA, FOR POSSIBLE DISCHARGE TODAY, NO PAIN OR DISCOMFORT, BP WITHIN NORMAL RANGE, NO HYPOTENSION NOTED, ENDORSED FOR CONTINUITY OF CARE.
[2022-08-18 08:00] VITALS: BP 123/63
[2022-08-18] MEDS: DOCUSATE SODIUM 100 MG CAPSULE PO SCH (09:01)
[2022-08-18] MEDS: SERTRALINE HCL 50 MG TABLET PO SCH (09:01)
[2022-08-18] MEDS: ENSURE ENLIVE 237 ML LIQUID (VANILLA) PO SCH (09:01)
[2022-08-18] MEDS: FLUDROCORTISONE 0.1 MG TABLET PO SCH (09:01)
[2022-08-18] MEDS: PREGABALIN 25 MG CAPSULE PO SCH (09:01)
[2022-08-18] MEDS: ENOXAPARIN SODIUM 40 MG/0.4 ML DISP.SYRIN SQ SCH (09:09)
[2022-08-18] MEDS: VITAMINS A AND D 56.7 GM TUBE TP SCH (09:27)
[2022-08-18 12:00] VITALS: BP 99/56
[2022-08-18 16:00] VITALS: BP 102/57
--- NOTE | 2022-08-18 16:29 | NUR ---
SHIFT COMMANDER NOTE PATIENT DISCHARGED FROM FACILITY VIA [facility] @ 1625;ACCOMPANIED BY AMBULANCE. TRANSFERRED TO [facility]. NO IV ACCESS. NO BELONGING. REPORT GIVEN TO RECEIVING NURSE, ILEANA. PATIENT POOJA BAH, MADE AWARE OF TRANSFER.
--- NOTE | 2022-08-23 12:42 | NUR ---
MUSHTAQ received call from APS workerNany [phone] requesting patient's discharge location. MUSHTAQ informed Nany that pt. went to [facility]. Per Nany he will follow up with pt. there.
== END 2022-08-18 16:30 | DRG 391 ==
LOC: ER 22:41 → TELE 08-10 03:10 → MED 08-10 03:34 → TELE 08-14 14:11 → ICU 08-15 06:54 → TELE 08-15 17:54
PROVIDERS: ADMIT Student in an Organized Health Care Education/Training Program; ATTEND Student in an Organized Health Care Education/Training Program
DX: K59.00 Constipation, unspecified (principal); E43 Unspecified severe protein-calorie malnutrition; E87.1 Hypo-osmolality and hyponatremia; E27.40 Unspecified adrenocortical insufficiency; G93.40 Encephalopathy, unspecified; E87.20 Acidosis, unspecified; K80.20 Calculus of gallbladder without cholecystitis without obstruction; I10 Essential (primary) hypertension; F03.90 Unspecified dementia, unspecified severity, without behavioral disturbance, psychotic disturbance, mood disturbance, and anxiety; E78.5 Hyperlipidemia, unspecified; E87.6 Hypokalemia; E86.9 Volume depletion, unspecified; E87.5 Hyperkalemia; E88.09 Other disorders of plasma-protein metabolism, not elsewhere classified; K40.90 Unilateral inguinal hernia, without obstruction or gangrene, not specified as recurrent; K82.8 Other specified diseases of gallbladder; L85.3 Xerosis cutis; Z53.20 Procedure and treatment not carried out because of patient's decision for unspecified reasons; R33.9 Retention of urine, unspecified; L89.159 Pressure ulcer of sacral region, unspecified stage; L89.620 Pressure ulcer of left heel, unstageable
CPT/HCPCS: 36415; 70450-TC; 71045-TC; 76705-TC; 78226; 80048-TC; 80053-TC; 80076-TC; 81001; 82247-TC; 82248-TC; 83605-TC; 83735-TC; 84100-TC; 84484-TC; 85025-TC; 87040-TC; 87081-TC; 87086-TC; 92526; 92611-TC; 93307-TC; 97110-TC; 97530-TC; A4216; A6253; A6403; A9537; C9803; G0378; J0692; J1650; J2270; J2543; J3475; J7030; J7040; J7042; J7050; J7060; P9047

== ENCOUNTER 2022-09-10 16:14 | Inpatient (IN) | payer MEDICARE, OTHER ==
[~2022-09-10] VITALS: Ht 165.1 cm; Wt 74.4 kg
[~2022-09-10 16:14] MED LIST: ACET1TAB23 PO; DONE10TA44 PO; FLUD0.1T3 PO; MIDO5TAB4 PO; NORT25CA PO; PREG50CA PO; ROSU5TAB13 PO; SERT50TA12 PO
--- NOTE | 2022-09-10 16:16 | NUR ---
[id number] FOR NOTED O2 DESATURATION AND TACHYCARDIA. PT ATTACHED TO MONITOR, PT SATTING AT 100% ON 15L NR. PT IS AWARM TO TOUCH, AFEBRILE. PT IS A&OX2. PT HAS A SACRAL PRESSURE INJURY. PT CLEANED AND CHANGED INTO GOWN. AWAITING MD ORDERS.
--- NOTE | 2022-09-10 16:35 | NUR ---
IV ESTABLIHSED R UPPER ARM 18G. LABS AND CULTURES COLLECTED AND SENT.
[2022-09-10 16:36] LABS: ABG BASE EXCESS 3.2 mmol/L; ABG PCO2 30.3 mmHg (35.0-45.0); ABG PO2 131.1 mmHg (75.0-100.0); COHb 0.3 % (0.5-1.5); MetHb 0.3 % (0.0-1.5); O2Hb 97.9 % (94.0-97.0); SITE, ABG Right Radial; VENT MODE, BG nrb 100 15l
--- NOTE | 2022-09-10 16:37 | NUR ---
COVID TEST COLLECTED AND SENT
[2022-09-10] MEDS ORDERED: DOCU-141 PO (16:50)
[2022-09-10] MEDS ORDERED: AMIN30LI2 PO (16:50)
[2022-09-10] MEDS ORDERED: ENOX40DI SQ (16:50)
[2022-09-10] MEDS ORDERED: ARGI1POW13 PO (16:50)
[2022-09-10] MEDS ORDERED: HYDR-4303 PO (16:50)
[2022-09-10] MEDS ORDERED: ACET-868 PO (16:50)
[2022-09-10] MEDS ORDERED: ATOR10TA PO (16:50)
[2022-09-10] MEDS ORDERED: ZINC1CAP3 PO (16:50)
[2022-09-10] MEDS ORDERED: ASCO-340 PO (16:50)
[2022-09-10] MEDS ORDERED: MULT-447 PO (16:50)
[2022-09-10] MEDS ORDERED: FLUD0.1T PO (16:50)
[2022-09-10] MEDS ORDERED: ONDA-97 PO (16:50)
[2022-09-10] MEDS ORDERED: PIPERACILLIN /TAZOBACTAM 3.375 G in IV D5W 50 ML IV ONE (17:00)
[2022-09-10 17:19] LABS: BASOPHILS % (AUTO) 0.2 % (0.0-2.0); EOSINOPHILS % (AUTO) 0.2 % (0.0-6.0); HEMATOCRIT 33 % (33-45); HEMOGLOBIN 10.8 g/dL (11.5-14.8); LYMPHOCYTES # (AUTO) 2.9 K/uL (0.8-4.8); LYMPHOCYTES % (AUTO) 44.2 % (20.0-44.0); MEAN CORPUSCULAR HGB CONC 33 g/dl (31.0-36.0); MEAN CORPUSCULAR VOLUME 90 fL (82-100); MONOCYTES # (AUTO) 0.4 K/uL (0.1-1.30); MONOCYTES % (AUTO) 5.8 % (2.0-12.0); NEUTROPHILS # (AUTO) 3.2 K/uL (1.8-8.9); NEUTROPHILS % (AUTO) 49.6 % (43.0-81.0); PLATELET COUNT (AUTO) 183 K/uL (150-450); WHITE BLOOD COUNT (AUTO) 6.5 K/uL (4.3-11.0)
[2022-09-10 17:21] LABS: CALCIUM, SERUM 7.5 mg/dL (8.5-10.1); CARBON DIOXIDE 31 mmol/L (21-32); CHLORIDE 100 mmol/L (98-107); CREATININE 0.7 mg/dL (0.6-1.3); GLUCOSE 103 mg/dL (74-106); POTASSIUM 3.7 mmol/L (3.5-5.1); SODIUM SERUM 141 mmol/L (136-145); UREA NITROGEN, BLOOD 31 mg/dL (7-18)
--- NOTE | 2022-09-10 17:24 | NUR ---
PICC LINE NURSE AT BEDSIDE
--- NOTE | 2022-09-10 17:25 | NUR ---
Note jocelynn in EDM - 09/10/22 at 1726 by SANAZ CC LINE OBTAINED BY KIAN BAH/RAHEL GAVE VERBAL CONSENT FOR PICC LINE OVER THE PHONE [phone] AND CONFIRMED BY 2 RNS. CONSENT PLACED WITHIN PTS CHART.
--- NOTE | 2022-09-10 17:26 | NUR ---
VERBAL CONSENT OBTAINED BY KIAN FENTON FOR PICC LINE OVER THE PHONE [phone] AND CONFIRMED BY 2 RNS. CONSENT PLACED WITHIN PTS CHART.
[2022-09-10] MEDS ORDERED: VANCOMYCIN 1 GM in IV D5W 250 ML IV ONE (17:30)
[2022-09-10 17:34] LABS: ALANINE AMINOTRANSFERASE 32 U/L (12-78); ALKALINE PHOSPHATASE 401 U/L (46-116); ASPARTATE AMINOTRANSFERASE 58 U/L (15-37); BILIRUBIN,DIRECT 1.1 mg/dL (0.0-0.2); BILIRUBIN,TOTAL 1.6 mg/dL (0.2-1.0); TOTAL PROTEIN, SERUM 6.6 g/dL (6.4-8.2)
[2022-09-10 17:35] LABS: ALBUMIN 1.4 g/dL (3.4-5.0)
--- NOTE | 2022-09-10 18:10 | NUR ---
URINE COLLECTED AND SENT
--- NOTE | 2022-09-10 18:42 | NUR ---
[facility] CALLED PARCEL POST OFFICER PAGED.
--- NOTE | 2022-09-10 19:07 | NUR ---
GAS TORCH BRAZIER AT PT'S BEDSIDE
[2022-09-10 19:23] LABS: BILIRUBIN,URINE MODERATE (NEGATIVE); COLOR,URINE YELLOW (YELLOW); LEUKOCYTE ESTERASE ,URINE LARGE (NEGATIVE); NITRITE, URINE NEGATIVE (NEGATIVE); PROTEIN,URINE 30 mg/dl (NEGATIVE); UGLUCOSE NEGATIVE (NEGATIVE); UROBILINOGEN,URINE >=8.0 EU/dL (0.2)
[2022-09-10 19:27] LABS: PH,URINE >8.5 (5.0-8.0)
[2022-09-10] MEDS ORDERED: NOREPINEPHRINE 8 MG in IV NS 0.9% 250 ML IV ONE (19:30)
[2022-09-10] MEDS ORDERED: IV NS 0.9% 1,000 ML BAG IV ONE (19:30)
[2022-09-10] MEDS ORDERED: IOHEXOL-350 100 ML VIAL IV ONE ×2 (19:42→21:41)
[2022-09-10] MEDS ORDERED: IV NS 0.9% 250 ML IV ONE ×2 (19:43→21:41)
[2022-09-10 19:53] LABS: BACTERIA,URINE 4+ /HPF (None Seen); RBC,URINE 0-2 /HPF (0-2); SQUAMOUS EPITHELIAL CELL,UR 0-2 /HPF (None Seen); TRIPLE PHOSPHATE CRYSTAL,UR Few /HPF (None Seen); WBC,URINE 81-100 /HPF (0-3)
--- NOTE | 2022-09-10 20:12 | NUR ---
LACTIC ACID 3.11 PER LAB
[2022-09-10] MEDS ORDERED: ONDANSETRON HCL/PF 4 MG/2 ML VIAL IVP PRN (20:30)
[2022-09-10] MEDS: IPRATROPIUM NEB FS 0.5 MG/2.5 ML AMPUL.NEB NEB SCH (20:30)
[2022-09-10] MEDS ORDERED: ACETAMINOPHEN 325 MG TABLET PO PRN (20:30)
[2022-09-10] MEDS: ALBUTEROL FS 2.5 MG/0.5 ML VIAL.NEB NEB SCH (20:30)
[2022-09-10] MEDS ORDERED: ONDANSETRON 4 MG TAB.RAPDIS PO PRN (21:00)
[2022-09-10] MEDS ORDERED: VANCOMYCIN 1.25 GM in IV D5W 250 ML IV SCH (21:00)
--- NOTE | 2022-09-10 21:00 | NUR ---
RECIEVED BED 256
--- NOTE | 2022-09-10 21:26 | NUR ---
REPORT GIVEN TO ASHLEY ROSAS
[2022-09-10] MEDS ORDERED: ONDANSETRON HCL/PF 4 MG/2 ML VIAL ONE (21:50)
--- NOTE | 2022-09-10 21:51 | NUR ---
PT TAKEN TO CT VIA ACLS PROTOCOL
--- NOTE | 2022-09-10 21:51 | NUR ---
RT NOTE PT NOT IN UNIT FOR TX.
[2022-09-10] MEDS ORDERED: ATORVASTATIN 10 MG TABLET PO SCH (22:00)
[2022-09-10] MEDS ORDERED: IV NS 0.9% 250 ML IV PRN (22:00)
--- NOTE | 2022-09-10 22:12 | NUR ---
RN/ICU- ADMITTED THIS 86 Y/O FEMALE FROM ER BY LUISA ACCOMPANIED BY ER STAFF W/ DIAGNOSIS:SEPSIS UTI, RESPIRATORY FAILURE. ROUTINE ICU ADMISSION CARE INITIATED. PT EYES ARE OPEN, NON-INTERACTIVE. EKG ST W/ HR-144/MIN. BP-146/92. ON LEVOPHED DRIP AT 0.6 MCG/KG/MIN. WILL TITRATE ACCORDINGLY TO KEEP SBP>90. W/ PRESSURE WDS. NOTED ON SACRUM AND LEFT HEEL. PHOTOS TAKEN, INITIAL TREATMENT DONE. REFER TO SKIN PROBLEM ASSESSMENT AND WOUND PHOTOS FOR DETAILS. AFEBRILE.TEMPT.-97.5/F. PT. IS A FULL CODE.
--- NOTE | 2022-09-10 22:24 | NUR ---
PT TAKEN TO ICU VIA ACLS PROTOCOL ON LEVOPHED 0.6MCG/KG/MIN.
[2022-09-10] MEDS ORDERED: NOREPINEPHRINE 8MG/250ML RTU 250 ML IV ONE (22:30)
[2022-09-10 22:31] VITALS: BP 90/53
[2022-09-10 22:48] VITALS: BP 90/56
--- NOTE | 2022-09-10 22:59 | NUR ---
RN/ICU-UNABLE TO GIVE LIPITOR , PT. AMS, EYES OPEN BUT NON INTERACTIVE.
[2022-09-10 23:01] VITALS: BP 85/68
[2022-09-10] MEDS: NOREPINEPHRINE 8 MG in IV NS 0.9% 242 ML IV PRN (23:04)
[2022-09-10] MEDS ORDERED: IV NS 0.9% 1,000 ML IV STA (23:10)
[2022-09-10 23:17] VITALS: BP 84/62
--- NOTE | 2022-09-10 23:28 | NUR ---
RN/ICU-AT 2316 PHOEBE MERINO HERE TO ASSESS PT. W/ HR-139 ST, BP-84/62, WITH ORDER TO GIVE NS IL IVBOLUS, WILL REASSESS FOR PRN EFFECTIVENESS.
[2022-09-10 23:37] VITALS: BP 82/53
[2022-09-11] VITALS (60 sets, daily range): BP systolic 66–112; BP diastolic 38–69
[2022-09-11] MEDS ORDERED: PIPERACILLIN /TAZOBACTAM 3.375 G VIAL IV ONE ×2 (00:37→06:11)
[2022-09-11] MEDS: PIPERACILLIN /TAZOBACTAM 3.375 G in IV D5W 50 ML IV SCH ×3 (00:38→12:26)
[2022-09-11] MEDS ORDERED: NOREPINEPHRINE 8MG/250ML RTU 250 ML IV ONE (00:55)
[2022-09-11] MEDS: NOREPINEPHRINE 8 MG in IV NS 0.9% 242 ML IV PRN (00:57)
[2022-09-11] MEDS ORDERED: VASOPRESSIN INJ 40 UNIT in IV NS 0.9% 38 ML IV PRN (01:30)
[2022-09-11] MEDS ORDERED: IV NS 0.9% 1,000 ML IV PRN (01:30)
[2022-09-11] MEDS ORDERED: IV NS 0.9% 1,000 ML IV STA ×3 (01:34→04:03)
--- NOTE | 2022-09-11 01:56 | NUR ---
RN/ICU-AT 0142 UPDATE GIVEN TO PHOEBE CARLISLE VITAL SIGNS, W/ PHONE ORDER TO GIVE ANOTHER IV BOLUS OF NS IL. WILL CONTINUE TO MONITOR CLOSELY AND WILL REFER ACCORDINGLY NEEDED.
--- NOTE | 2022-09-11 02:00 | NUR ---
RN/ICU-PT. PULSE OX NOT TRACKING, PT. WITH VERY COLD EXTREMITIES, W/ WARM BLANKETS ON, ACNP Javier MERINO AWARE.
[2022-09-11] MEDS ORDERED: NOREPINEPHRINE 4 MG/4 ML AMPUL IV ONE (02:44)
[2022-09-11] MEDS: NOREPINEPHRINE 32 MG in IV NS 0.9% 218 ML IV PRN ×2 (02:54→11:14)
--- NOTE | 2022-09-11 03:05 | NUR ---
RN/ICU-PT. REMAINS NON VERBAL, SUDDENLY NOTED ON EKG HR ON THE 30'S, PULSELESS, PEA, ACLS INITIATED, CODE BLUE ACTIVATED, SEE CODE BLUE SHEET FOR DETAILS.
--- NOTE | 2022-09-11 03:10 | NUR ---
RT NOTE PT ORALLY INTUBATED WITH 7.5 ET TUBE @ 24 CM LIP LINE. BILATERAL CHEST RISE NOTED. SUCTION DONE, SMALL THICK NICOLE SECRETIONS NOTED. VENT PLUGGED TO RED OUTLET. ALARMS ON AND AUDIBLE. DRAW FURNACE TENDER RENE @ BEDSIDE. NO PEEP ADDED DUE TO LOW BP AT THIS TIME. WILL CONTINUE TO MONITOR CLOSELY. ABG PROCEDURE PENDING.
--- NOTE | 2022-09-11 03:13 | NUR ---
RN/ICU-NOW PT. ROSC,ON THE VENT PER ETT.
[2022-09-11] MEDS ORDERED: VASOPRESSIN INJ 20 UNIT/ML VIAL ONE (03:20)
[2022-09-11] MEDS ORDERED: PROPOFOL 100 ML IV PRN (03:30)
--- NOTE | 2022-09-11 04:25 | NUR ---
RT NOTE UNABLE TO OBTAIN ABG AT THIS TIME. MEDICAL RECORDS ASSISTANT RENE AND SCOTT MERINO AT BEDSIDE. ORDERED TO ATTEMPT ABG AGAIN IN 1 HOUR AFTER ADMINISTERING MEDICATIONS.
[2022-09-11] MEDS ORDERED: DEXTROSE 50%-WATER 50 ML DISP.SYRIN ONE (04:43)
[2022-09-11] MEDS ORDERED: SODIUM BICARBONATE SYR 50 MEQ/50 ML DISP.SYRIN ONE (04:57)
[2022-09-11] MEDS ORDERED: DEXTROSE 50%-WATER 50 ML DISP.SYRIN IVP PRN (05:00)
[2022-09-11] MEDS ORDERED: SODIUM BICARBONATE SYR 50 MEQ/50 ML DISP.SYRIN IV ONE ×4 (05:00→11:48)
[2022-09-11] MEDS ORDERED: INSULIN REGULAR, HUMAN 100 UNIT/ML 3 ML VIAL SQ PRN (05:30)
[2022-09-11] MEDS ORDERED: IV NS 0.9% 1,000 ML IV SCH (05:30)
[2022-09-11] MEDS ORDERED: BLOOD SUGAR DIAGNOSTIC 1 EACH STRIP IN PRN (05:30)
[2022-09-11 05:37] LABS: ABG BASE EXCESS -17.2 mmol/L; ABG OXYGEN SATURATION 83.6 % (92.0-98.5); ABG PCO2 41.2 mmHg (35.0-45.0); ABG PH 7.073 (7.350-7.450); ABG PO2 68.6 mmHg (75.0-100.0); AaDO2 603.2 mmHg; COHb 0.3 % (0.5-1.5); MetHb 0.3 % (0.0-1.5); O2Hb 83.1 % (94.0-97.0); SITE, ABG Right Radial
[2022-09-11] MEDS: BLOOD SUGAR DIAGNOSTIC 1 EACH STRIP IN SCH ×2 (06:09→12:17)
[2022-09-11 06:11] LABS: ABG BASE EXCESS -13.8 mmol/L; ABG OXYGEN SATURATION 85.6 % (92.0-98.5); ABG PCO2 39.2 mmHg (35.0-45.0); ABG PH 7.165 (7.350-7.450); ABG PO2 66.9 mmHg (75.0-100.0); AaDO2 606.9 mmHg; COHb 0.3 % (0.5-1.5); O2Hb 85.3 % (94.0-97.0); SITE, ABG Right Radial; VENT MODE, BG AC 18 450 100% +0
--- NOTE | 2022-09-11 06:15 | NUR ---
RN/ICU- PT TEMPT-95.9/F, ACNP WILBER NOTIFIED W/ ORDER TO PLACE PT. ON ARSLAN LUCIANO.
--- NOTE | 2022-09-11 07:12 | NUR ---
WOUND CARE CONSULT: PT UNSTABLE FOR SKIN ASSESSMENT AT THIS TIME, STATUS POST CODE BLUE PER RN. 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 DR MCMULLEN AND DR RIGGS TO BE CALLED THIS AM FOR SURGICAL AND DPM CONSULTS. RECOMMENDATIONS MADE FOR SKIN PROTECTION AND FOR SACRAL WOUND CARE. DISCUSSED WITH NURSING STAFF. MD IN AGREEMENT WITH PLAN OF CARE.
[2022-09-11] MEDS ORDERED: Z GUARD REMEDY 4 OZ OINT TP PRN (07:30)
--- NOTE | 2022-09-11 07:30 | NUR ---
RN NOTES PT FOUN SUPINE DISPLAYING NO S/S OF ACUTE DISTRESS, FLACC = 0 AND BILATERAL RISE AND FALL OF THE CHEST OBSERVED. PT APPEARS DUSKY. EYE ARE OPEN, MINIMAL CORNEAL REFLEX. CONSENT FOR PICC OBTAINED. PT HAS GENERALIZED EDEMA, WEEPING NOTED OF EXTREMITIES. L UA ML IS PATENT. DEFIBULATOR PADS NOTED. DOWNS CATH RESERVOIR BELOW PATIENT DRAINING BY GRAVITY. ARSLAN HUGGER APPLIED. RN WILL CONTINUE CARE PLAN AND ANTICIPATE NEEDS. SAFETY MEASURES IN PLACE, BED LOCKED AND IN LOWEST POSITION, SIDE RAILS UPX2, CALL LIGHT WITHIN REACH, BED ALARM ARMED.
[2022-09-11] MEDS: ALBUTEROL FS 2.5 MG/0.5 ML VIAL.NEB NEB SCH ×2 (07:33→11:30)
[2022-09-11] MEDS: IPRATROPIUM NEB FS 0.5 MG/2.5 ML AMPUL.NEB NEB SCH ×2 (07:33→11:30)
[2022-09-11] MEDS ORDERED: Sodium Bicarbonate 100 MEQ in IV D5W 1,000 ML IV SCH (08:00)
--- NOTE | 2022-09-11 08:00 | NUR ---
PT UNSTABLE. RN, RT, AND MD AT BEDSIDE. WILL ATTEMPT TO DO US-ABD EXAM LATER.
[2022-09-11] MEDS ORDERED: EPINEPHRINE (1:10,000) SYRINGE 1 MG/10 ML DISP.SYRIN IVP ONE ×2 (08:25→11:48)
[2022-09-11 08:38] LABS: ABG BASE EXCESS -18.3 mmol/L; ABG PCO2 35.5 mmHg (35.0-45.0); ABG PH 7.087 (7.350-7.450); ABG PO2 72.2 mmHg (75.0-100.0); AaDO2 605.3 mmHg; MetHb 0.3 % (0.0-1.5); O2Hb 87.7 % (94.0-97.0); SITE, ABG Right Radial
[2022-09-11] MEDS ORDERED: ZINC SULFATE 220 MG CAPSULE PO SCH (09:00)
[2022-09-11] MEDS ORDERED: DOCUSATE SODIUM 100 MG CAPSULE PO SCH (09:00)
[2022-09-11] MEDS ORDERED: PANTOPRAZOLE 40 MG VIAL IV SCH (09:00)
[2022-09-11] MEDS ORDERED: FLUDROCORTISONE 0.1 MG TABLET PO SCH (09:00)
[2022-09-11] MEDS ORDERED: ASCORBIC ACID 500 MG TABLET PO SCH (09:00)
[2022-09-11] MEDS ORDERED: PREGABALIN 25 MG CAPSULE PO SCH (09:00)
[2022-09-11] MEDS ORDERED: ENOXAPARIN SODIUM 40 MG/0.4 ML DISP.SYRIN SQ SCH (09:00)
[2022-09-11] MEDS ORDERED: Z GUARD REMEDY 4 OZ OINT TP SCH (09:00)
[2022-09-11] MEDS ORDERED: MIDODRINE HCL (5MG) 5 MG TABLET PO SCH (09:00)
[2022-09-11] MEDS ORDERED: DAKINS QUARTER STRENGTH (0.125%) 480 ML BOTTLE TOP SCH (09:00)
[2022-09-11] MEDS ORDERED: MULTIVIT W/MINERALS 1 TAB TABLET PO SCH (09:00)
[2022-09-11] MEDS ORDERED: SERTRALINE HCL 50 MG TABLET PO SCH (09:00)
--- NOTE | 2022-09-11 09:00 | NUR ---
NURSES NOTES PO RX NOT GIVEN. NO G TUBE PRESENT. PT IS HIGHLY HEMODYNAMICALLY UNSTABLE (DUSKY APPEARANCE, UNABLE TO READ SPO2, DIFFICULT TO PALPATE FEMORAL ARTERY). UNSAFE TO INSERT NGT, OBTAIN X RAY CONFIRMATION. Addendum: 09/11/22 at 1126 by DAFNE PEÑA RN TOPICAL RX NOT GIVEN WELL FOR SAME RATIONALE
[2022-09-11 09:30] LABS: THYROID STIMULATING HORMONE 2.095 uIU/mL (0.358-3.74)
[2022-09-11 09:33] LABS: MAGNESIUM 1.9 mg/dL (1.8-2.4)
[2022-09-11] MEDS: DEXTROSE 50%-WATER 50 ML DISP.SYRIN IV PRN ×2 (10:02→12:17)
--- NOTE | 2022-09-11 10:17 | NUR ---
10:00 spoke to RNJoel. PT still unstable, RN requested the US- Abdomen exam to be done tomorrow
[2022-09-11 11:47] LABS: BASOPHILS % (AUTO) 0.1 % (0.0-2.0); EOSINOPHILS % (AUTO) 0.7 % (0.0-6.0); HEMATOCRIT 30 % (33-45); HEMOGLOBIN 8.1 g/dL (11.5-14.8); LYMPHOCYTES # (AUTO) 3.1 K/uL (0.8-4.8); LYMPHOCYTES % (AUTO) 31.5 % (20.0-44.0); MEAN CORPUSCULAR HGB CONC 27 g/dl (31.0-36.0); MEAN CORPUSCULAR VOLUME 111 fL (82-100); MONOCYTES # (AUTO) 0.5 K/uL (0.1-1.30); MONOCYTES % (AUTO) 5.5 % (2.0-12.0); NEUTROPHILS # (AUTO) 6.1 K/uL (1.8-8.9); NEUTROPHILS % (AUTO) 62.2 % (43.0-81.0); PLATELET COUNT (AUTO) 96 K/uL (150-450); RED BLOOD CELL COUNT(AUTO) 2.73 MIL/uL (4.0-5.2); WHITE BLOOD COUNT (AUTO) 9.7 K/uL (4.3-11.0)
[2022-09-11] MEDS ORDERED: DEXTROSE 50%-WATER 50 ML DISP.SYRIN IV ONE (11:48)
--- NOTE | 2022-09-11 11:55 | NUR ---
MD VISIT DR SOLIS VISITED PT, PERFORMED QUESTIONS, DISCUSSED CARE PLAN W/ RN. MD GAVE ORDERS: START NGT AND FOLLOW UP WITH TF. RN ACKNOWLEDGED AND WILL EXECUTE ORDERS.
[2022-09-11 12:28] LABS: BILIRUBIN,DIRECT 0.9 mg/dL (0.0-0.2); BILIRUBIN,TOTAL 1.1 mg/dL (0.2-1.0); CALCIUM, SERUM 6.5 mg/dL (8.5-10.1); CREATININE 0.9 mg/dL (0.6-1.3); POTASSIUM 3.8 mmol/L (3.5-5.1); TOTAL PROTEIN, SERUM 3.7 g/dL (6.4-8.2)
[2022-09-11] MEDS ORDERED: HYDROCORTISONE SOD SUCCINATE 100 MG/2 ML VIAL IV SCH (13:00)
--- NOTE | 2022-09-11 13:00 | NUR ---
MD COMMUNICATION RN SPOKE TO DR SOLIS RIGHT AFTER MD SPOKE TO FAMILY VIA TELEPHONE IN ICU. MD GAVE ORDERS: STOP ALL CURRENT TREATMENTS, CHANGE CODE STATUS TO COMFORT CARE MEASURES, MORPHINE DRIP AT 5MG/HR TITRATE UP TO 20MG/HR FOR COMFORT, ATIVAN 1MG/HR Q2H PRN COMFORT, SCOPOLAMINE PATCH, ONCE MORPHINE DRIP IS RUNNING EXTUBATE TERMINALLY AND REPLACE WITH 1L O2 NC.
[2022-09-11] MEDS ORDERED: MORPHINE SULFATE PF DRIP 250 MG in IV D5W 240 ML IV PRN (13:30)
[2022-09-11] MEDS ORDERED: LORAZEPAM INJ 2 MG/ML VIAL IV PRN (13:30)
[2022-09-11] MEDS ORDERED: DC PROPOFOL WHEN EXTUBATED XX PRN (13:45)
[2022-09-11] MEDS ORDERED: SCOPOLAMINE PATCH 1 MG/72HR TD SCH (14:00)
--- NOTE | 2022-09-11 14:30 | NUR ---
RT PATIENT TERMINALLY EXTUBATED PER MD ORDER
--- NOTE | 2022-09-11 14:35 | NUR ---
RN NOTE PT TERMINALLY EXTUBATED, ATIVAN GIVEN, MORPHINE DRIP GOING, SCOPOLAMINE PATCH APPLIED.
[2022-09-11 14:44] LABS: ALBUMIN 0.9 g/dL (3.4-5.0)
--- NOTE | 2022-09-11 14:45 | NUR ---
RN NOTE CARDIAC AT 1445. ASHLEY LEOS AND SUKI CONFIRMED ASYSTOLE.
--- NOTE | 2022-09-11 14:50 | NUR ---
RN NOTE ASHLEY WRIGHT CALLED AND NOTIFIED FAMILY
--- NOTE | 2022-09-11 14:56 | NUR ---
[facility] NUMBER [id number]
[2022-09-11] MEDS ORDERED: NORTRIPTYLINE HCL 25 MG CAPSULE PO SCH (18:00)
--- NOTE | 2022-09-11 18:08 | NUR ---
PT LEFT FLOOR W/ SECURITY
[2022-09-11 21:10] LABS: BASOPHILS % (MANUAL) 0 % (0.0-2.0); EOSINOPHILS % (MANUAL) 0 % (0-4); LYMPHOCYTES % (MANUAL) 25 % (16-48); MONOCYTES % (MANUAL) 4 % (0-11.0); NEUTROPHILS % (MANUAL) 71 (42-76)
== END 2022-09-11 18:14 | DRG 871 ==
LOC: ER 16:17 → ICU 21:04
PROVIDERS: ADMIT Registered Nurse
PROC: 5A1935Z Respiratory Ventilation, Less than 24 Consecutive Hours (ICD-10-PCS; principal; 2022-09-10)
PROC: 0BH18EZ Insertion of Endotracheal Airway into Trachea, Via Natural or Artificial Opening Endoscopic (ICD-10-PCS; 2022-09-10)
PROC: 02HV33Z Insertion of Infusion Device into Superior Vena Cava, Percutaneous Approach (ICD-10-PCS; 2022-09-10)
PROC: B548ZZA Ultrasonography of Superior Vena Cava, Guidance (ICD-10-PCS; 2022-09-10)
DX: A41.9 Sepsis, unspecified organism (principal); J18.9 Pneumonia, unspecified organism; J96.01 Acute respiratory failure with hypoxia; R65.21 Severe sepsis with septic shock; N39.0 Urinary tract infection, site not specified; D68.59 Other primary thrombophilia; E87.20 Acidosis, unspecified; E27.40 Unspecified adrenocortical insufficiency; G93.1 Anoxic brain damage, not elsewhere classified; Z51.5 Encounter for palliative care; E16.2 Hypoglycemia, unspecified; E78.5 Hyperlipidemia, unspecified; I95.9 Hypotension, unspecified; R74.01 Elevation of levels of liver transaminase levels; E80.6 Other disorders of bilirubin metabolism; F32.9 Major depressive disorder, single episode, unspecified; F03.90 Unspecified dementia, unspecified severity, without behavioral disturbance, psychotic disturbance, mood disturbance, and anxiety; I11.0 Hypertensive heart disease with heart failure; I50.9 Heart failure, unspecified; I46.9 Cardiac arrest, cause unspecified; L89.626 Pressure-induced deep tissue damage of left heel
CPT/HCPCS: 31720; 36415; 36600; 70450-TC; 71045-TC; 74018; 80048-TC; 80053-TC; 80061-TC; 80076-TC; 81001; 82247-TC; 82248-TC; 82962-TC; 83605-TC; 83735-TC; 83880; 84100-TC; 84443-TC; 84484-TC; 85025-TC; 85730-TC; 87040-TC; 87081-TC; 87086-TC; 92950-TC; 94002-TC; 94799-TC; A6403; C9113; C9803; G0378; J0171; J1815; J2060; J2274; J2405; J2543; J3370; J3490; J7030; J7050; J7060; J7070; Q0162; Q9967